=== PATIENT | male | born 1935 | race Caucasian/White ===

== ENCOUNTER 2017-12-27 15:31 | Emergency (ER) | payer MEDICARE, OTHER ==
[2017-12-27 18:03] LABS: BASOPHILS 0.2 % (0-2); EOSINOPHILS 0 % (0-7); HEMATOCRIT 34.5 % (42.0-54.0); HEMOGLOBIN 10.9 g/dL (13.5-17.5); IMMATURE GRANULOCYTES 0.2 % (0-5); LYMPHOCYTES 15.1 % (15-50); MCH 30.1 pg (26.0-34.0); MCHC 31.6 g/dL (31.0-37.0); MCV 95.3 fL (80.0-100.0); MEAN PLATELET VOLUME 9.4 fL (7.4-10.4); MONOCYTES 9.7 % (2-11); NEUTROPHILS 74.8 % (40-80); PLATELET COUNT 222 10x3/uL (130-400); RBC 3.62 10x6/uL (4.20-6.10); RDW 15.8 % (11.5-14.5); WBC 5.2 10x3/uL (4.8-10.8)
[2017-12-27 18:19] LABS: ALBUMIN 2.8 g/dL (3.4-5.0); ANION GAP 12.7 mmol/L (8-16); BILIRUBIN - TOTAL 0.33 mg/dL (0.2-1.3); CARBON DIOXIDE 28.9 mmol/L (21.0-32.0); CREATININE - SERUM 1.4 mg/dL (0.6-1.3); POTASSIUM - SERUM 3.6 mmol/L (3.5-5.1); PROTEIN - SERUM 7.1 g/dL (6.4-8.2)
== END 2017-12-27 19:56 | disposition home or self-care (01) ==
LOC: D.ER 15:31
PROVIDERS: Emergency Medicine
DX: J44.1 Chronic obstructive pulmonary disease with (acute) exacerbation (principal); G91.2 (Idiopathic) normal pressure hydrocephalus; G20 Parkinson's disease; E11.9 Type 2 diabetes mellitus without complications; I50.9 Heart failure, unspecified; Z86.73 Personal history of transient ischemic attack (TIA), and cerebral infarction without residual deficits; J44.9 Chronic obstructive pulmonary disease, unspecified; I10 Essential (primary) hypertension

== ENCOUNTER 2018-04-15 05:50 | Inpatient (IN) | payer MEDICARE, OTHER ==
[2018-04-15] VITALS (10 sets, daily range): BP systolic 130–174; BP diastolic 64–91; BMI 27.9
[~2018-04-15] VITALS: Ht 180.3 cm; Wt 75.4 kg
[2018-04-15] MEDS ORDERED: ASPIRIN81 MG PO (05:56)
[2018-04-15] MEDS ORDERED: ZEBETA5 MG PO (05:56)
[2018-04-15] MEDS ORDERED: CARDIZEM LA240 MG PO (05:57)
[2018-04-15] MEDS ORDERED: LASIX40 MG PO (05:57)
[2018-04-15] MEDS ORDERED: HUMALOG 30100 UNITS/ (05:57)
[2018-04-15] MEDS ORDERED: GLIPIZIDE10 MG PO (05:57)
[2018-04-15] MEDS ORDERED: FERROUS SULFAT325 MG PO (05:57)
[2018-04-15] MEDS ORDERED: ZOCOR20 MG PO (05:58)
[2018-04-15] MEDS ORDERED: JANUVIA100 MG PO (05:58)
[2018-04-15] MEDS ORDERED: KLOR-CON 1010 MEQ PO (05:58)
[2018-04-15] MEDS ORDERED: SPIRIVA18 MCG INH (05:58)
[2018-04-15] MEDS ORDERED: SINEMET CR 50-1 EACH PO (05:59)
[2018-04-15] MEDS ORDERED: CLARITIN 10 MG10 MG PO (05:59)
[2018-04-15] MEDS ORDERED: LEXAPRO10 MG PO (05:59)
[2018-04-15] MEDS ORDERED: MELATONIN 3 MG1 TAB PO (05:59)
[2018-04-15] MEDS ORDERED: TYLENOL W/CODEI1 TAB PO (06:00)
[2018-04-15 07:49] LABS: CREATINE KINASE 59 UL (21-232); TROPONIN-I < 0.017 ng/mL (0.000-0.060)
[2018-04-15 07:56] LABS: BASOPHILS 0.3 % (0-2); EOSINOPHILS 2.8 % (0-7); HEMATOCRIT 39.9 % (42.0-54.0); HEMOGLOBIN 12.9 g/dL (13.5-17.5); IMMATURE GRANULOCYTES 0.3 % (0-5); MCH 30.2 pg (26.0-34.0); MCHC 32.3 g/dL (31.0-37.0); MCV 93.4 fL (80.0-100.0); MEAN PLATELET VOLUME 10.9 fL (7.4-10.4); MONOCYTES 9.3 % (2-11); NEUTROPHILS 70.3 % (40-80); RBC 4.27 10x6/uL (4.20-6.10); RDW 16.2 % (11.5-14.5); WBC 7.8 10x3/uL (4.8-10.8)
[2018-04-15 08:02] LABS: INR 0.99 (0.85-1.17); PROTIME 12.7 SECONDS (11.6-15.0)
[2018-04-15 08:11] LABS: PLATELET COUNT 176 10x3/uL (130-400)
[2018-04-15 09:23] LABS: APPEARANCE CLOUDY (CLEAR); BACTERIA FEW /hpf (NONE SEEN); BILIRUBIN NEGATIVE (NEGATIVE); COLOR YELLOW (YELLOW); EPITHELIAL CELLS RARE /hpf (0-5); GLUCOSE NEGATIVE (NEGATIVE); KETONE NEGATIVE (NEGATIVE); MUCUS <1+ /lpf (NONE SEEN); NITRITE NEGATIVE (NEGATIVE); PROTEIN TRACE mg/dL (NEGATIVE); SPECIFIC GRAVITY 1.005 (1.005-1.020); UROBILINOGEN NORMAL (NORMAL); WHITE CELLS - URINE >50 /hpf (0-5)
[2018-04-15 11:17] LABS: ALBUMIN 3.4 g/dL (3.4-5.0); ANION GAP 13.4 mmol/L (8-16); BILIRUBIN - TOTAL 0.31 mg/dL (0.2-1.3); CALCIUM 9.3 mg/dL (8.5-10.1); CARBON DIOXIDE 28.3 mmol/L (21.0-32.0); CREATININE - SERUM 1.3 mg/dL (0.6-1.3); POTASSIUM - SERUM 3.7 mmol/L (3.5-5.1); PROTEIN - SERUM 7.1 g/dL (6.4-8.2)
[2018-04-16 04:00] VITALS: BP 203/84
[2018-04-16 06:30] LABS: BASOPHILS 0.3 % (0-2); EOSINOPHILS 3.1 % (0-7); HEMATOCRIT 38.2 % (42.0-54.0); HEMOGLOBIN 12.4 g/dL (13.5-17.5); IMMATURE GRANULOCYTES 0.2 % (0-5); MCH 30.4 pg (26.0-34.0); MCHC 32.5 g/dL (31.0-37.0); MCV 93.6 fL (80.0-100.0); MEAN PLATELET VOLUME 10.3 fL (7.4-10.4); NEUTROPHILS 65.4 % (40-80); PLATELET COUNT 166 10x3/uL (130-400); RBC 4.08 10x6/uL (4.20-6.10); RDW 15.9 % (11.5-14.5); WBC 6.1 10x3/uL (4.8-10.8)
[2018-04-16 06:49] LABS: ALBUMIN 3.1 g/dL (3.4-5.0); ANION GAP 11.7 mmol/L (8-16); BILIRUBIN - TOTAL 0.34 mg/dL (0.2-1.3); CALCIUM 8.9 mg/dL (8.5-10.1); CARBON DIOXIDE 28.8 mmol/L (21.0-32.0); CREATININE - SERUM 1.1 mg/dL (0.6-1.3); POTASSIUM - SERUM 3.5 mmol/L (3.5-5.1); PROTEIN - SERUM 6.6 g/dL (6.4-8.2)
[2018-04-16 08:32] VITALS: BP 159/78
[2018-04-16 13:31] VITALS: Ht 180.3 cm; Wt 75.4 kg
[2018-04-16 15:50] VITALS: BP 174/75
[2018-04-16 19:55] VITALS: BP 172/90
[2018-04-16 22:59] VITALS: BP 183/84
[2018-04-17 04:00] VITALS: BP 166/69
[2018-04-17 06:17] LABS: BASOPHILS 0.3 % (0-2); EOSINOPHILS 3.2 % (0-7); HEMATOCRIT 36.6 % (42.0-54.0); HEMOGLOBIN 11.7 g/dL (13.5-17.5); MCV 93.8 fL (80.0-100.0); MONOCYTES 13.2 % (2-11); NEUTROPHILS 59.3 % (40-80); PLATELET COUNT 172 10x3/uL (130-400); WBC 6.3 10x3/uL (4.8-10.8)
[2018-04-17 06:46] LABS: ALBUMIN 3.2 g/dL (3.4-5.0); ALKALINE PHOSPHATASE 102 U/L (46-116); ALT (SGPT) 8 U/L (10-68); BILIRUBIN - TOTAL 0.32 mg/dL (0.2-1.3); CALCIUM 8.8 mg/dL (8.5-10.1); CARBON DIOXIDE 29.3 mmol/L (21.0-32.0); CHLORIDE - SERUM 107 mmol/L (98-107); GLUCOSE 93 mg/dL (74-106); POTASSIUM - SERUM 3.6 mmol/L (3.5-5.1); PROTEIN - SERUM 6.1 g/dL (6.4-8.2); SODIUM 146 mmol/L (136-145); eGFR NON AFRICAN AMERICAN 76 mL/min (90-120)
[2018-04-17 06:47] LABS: CALC OSMOLALITY 292 mosm/kg (275-300); UREA NITROGEN 19 mg/dL (7-18)
[2018-04-17 08:16] VITALS: BP 157/67
[2018-04-17 11:57] VITALS: BP 198/92
[2018-04-17 15:37] VITALS: BP 205/93
[2018-04-17 20:10] VITALS: BP 172/66
[2018-04-18 00:37] VITALS: BP 134/62
[2018-04-18 04:50] VITALS: BP 165/68
[2018-04-18 08:07] VITALS: BP 145/55
[2018-04-18 11:16] LABS: BASOPHILS 0.3 % (0-2); EOSINOPHILS 2.1 % (0-7); HEMATOCRIT 38.4 % (42.0-54.0); HEMOGLOBIN 12.5 g/dL (13.5-17.5); IMMATURE GRANULOCYTES 0.3 % (0-5); LYMPHOCYTES 17.8 % (15-50); MCH 30.3 pg (26.0-34.0); MCHC 32.6 g/dL (31.0-37.0); MCV 93.2 fL (80.0-100.0); MEAN PLATELET VOLUME 10.3 fL (7.4-10.4); NEUTROPHILS 69.5 % (40-80); PLATELET COUNT 186 10x3/uL (130-400); RBC 4.12 10x6/uL (4.20-6.10); RDW 15.7 % (11.5-14.5); WBC 6.7 10x3/uL (4.8-10.8)
[2018-04-18 11:23] VITALS: BP 147/59
[2018-04-18 11:31] LABS: ALBUMIN 3.2 g/dL (3.4-5.0); ANION GAP 14.2 mmol/L (8-16); BILIRUBIN - TOTAL 0.31 mg/dL (0.2-1.3); CALCIUM 9.1 mg/dL (8.5-10.1); CARBON DIOXIDE 28.2 mmol/L (21.0-32.0); CREATININE - SERUM 1.2 mg/dL (0.6-1.3); POTASSIUM - SERUM 3.4 mmol/L (3.5-5.1); PROTEIN - SERUM 6.3 g/dL (6.4-8.2)
[2018-04-18 15:44] VITALS: BP 126/51
[2018-04-18 21:24] VITALS: BP 143/52
[2018-04-19 01:47] VITALS: BP 152/51
[2018-04-19 05:16] LABS: BASOPHILS 0.2 % (0-2); HEMATOCRIT 36.1 % (42.0-54.0); HEMOGLOBIN 11.6 g/dL (13.5-17.5); IMMATURE GRANULOCYTES 0.2 % (0-5); MCH 29.7 pg (26.0-34.0); MCHC 32.1 g/dL (31.0-37.0); MCV 92.6 fL (80.0-100.0); MEAN PLATELET VOLUME 10.2 fL (7.4-10.4); MONOCYTES 13.5 % (2-11); NEUTROPHILS 49.1 % (40-80); PLATELET COUNT 166 10x3/uL (130-400); RDW 15.9 % (11.5-14.5); WBC 5.5 10x3/uL (4.8-10.8)
[2018-04-19 05:22] VITALS: BP 160/60
[2018-04-19 05:42] LABS: ALBUMIN 3.1 g/dL (3.4-5.0); ANION GAP 12.1 mmol/L (8-16); BILIRUBIN - TOTAL 0.34 mg/dL (0.2-1.3); CALCIUM 8.7 mg/dL (8.5-10.1); CARBON DIOXIDE 30.2 mmol/L (21.0-32.0); CREATININE - SERUM 1.2 mg/dL (0.6-1.3); POTASSIUM - SERUM 3.3 mmol/L (3.5-5.1); PROTEIN - SERUM 6.4 g/dL (6.4-8.2)
[2018-04-19 08:25] VITALS: BP 130/63
[2018-04-19 11:02] VITALS: BP 126/73
[2018-04-19 16:13] VITALS: BP 128/73
[2018-04-19 17:18] LABS: ANION GAP 13.6 mmol/L (8-16); CALCIUM 8.8 mg/dL (8.5-10.1); CARBON DIOXIDE 29.4 mmol/L (21.0-32.0); CREATININE - SERUM 1.4 mg/dL (0.6-1.3)
[2018-04-19 20:00] VITALS: BP 157/53
[2018-04-20 04:00] VITALS: BP 173/68
[2018-04-20 07:31] LABS: BASOPHILS 0.2 % (0-2); EOSINOPHILS 4.2 % (0-7); HEMATOCRIT 36.5 % (42.0-54.0); LYMPHOCYTES 30.3 % (15-50); MCH 30.2 pg (26.0-34.0); MCHC 32.9 g/dL (31.0-37.0); MCV 91.7 fL (80.0-100.0); MEAN PLATELET VOLUME 9.9 fL (7.4-10.4); MONOCYTES 10.6 % (2-11); NEUTROPHILS 54.7 % (40-80); PLATELET COUNT 166 10x3/uL (130-400); RBC 3.98 10x6/uL (4.20-6.10); RDW 15.7 % (11.5-14.5); WBC 5.2 10x3/uL (4.8-10.8)
[2018-04-20 07:56] LABS: ALBUMIN 3.2 g/dL (3.4-5.0); ANION GAP 14.4 mmol/L (8-16); BILIRUBIN - TOTAL 0.44 mg/dL (0.2-1.3); CARBON DIOXIDE 26.2 mmol/L (21.0-32.0); CREATININE - SERUM 1.1 mg/dL (0.6-1.3); POTASSIUM - SERUM 3.6 mmol/L (3.5-5.1); PROTEIN - SERUM 6.6 g/dL (6.4-8.2)
[2018-04-20 08:00] VITALS: BP 149/50
[2018-04-20 08:45] VITALS: BP 122/62
[2018-04-20 11:12] VITALS: BP 134/68
[2018-04-21 04:00] VITALS: BP 171/68
[2018-04-21 06:42] LABS: BASOPHILS 0.5 % (0-2); EOSINOPHILS 6.6 % (0-7); HEMATOCRIT 37.4 % (42.0-54.0); HEMOGLOBIN 11.9 g/dL (13.5-17.5); IMMATURE GRANULOCYTES 0.2 % (0-5); LYMPHOCYTES 36.7 % (15-50); MCH 29.2 pg (26.0-34.0); MCHC 31.8 g/dL (31.0-37.0); MCV 91.9 fL (80.0-100.0); MONOCYTES 14.1 % (2-11); NEUTROPHILS 41.9 % (40-80); PLATELET COUNT 177 10x3/uL (130-400); RBC 4.07 10x6/uL (4.20-6.10); RDW 15.6 % (11.5-14.5); WBC 4.4 10x3/uL (4.8-10.8)
[2018-04-21 07:26] LABS: ALBUMIN 3.2 g/dL (3.4-5.0); ANION GAP 12.3 mmol/L (8-16); BILIRUBIN - TOTAL 0.28 mg/dL (0.2-1.3); CALCIUM 9.1 mg/dL (8.5-10.1); CARBON DIOXIDE 29.2 mmol/L (21.0-32.0); CREATININE - SERUM 1.1 mg/dL (0.6-1.3); POTASSIUM - SERUM 3.5 mmol/L (3.5-5.1); PROTEIN - SERUM 6.6 g/dL (6.4-8.2)
[2018-04-21 08:35] VITALS: BP 177/58
[2018-04-21 11:55] VITALS: BP 170/68
== END 2018-04-21 14:14 | DRG 689 ==
LOC: D.ER 05:50 → D.M2 10:36 → D.EDHOLD 10:36 → D.M2 13:46
PROVIDERS: Emergency Medicine; Family Medicine
DX: N39.0 Urinary tract infection, site not specified (principal); G93.41 Metabolic encephalopathy; N17.9 Acute kidney failure, unspecified; B95.2 Enterococcus as the cause of diseases classified elsewhere; Z86.73 Personal history of transient ischemic attack (TIA), and cerebral infarction without residual deficits; E11.9 Type 2 diabetes mellitus without complications; E78.5 Hyperlipidemia, unspecified; I11.0 Hypertensive heart disease with heart failure; I50.9 Heart failure, unspecified; J44.9 Chronic obstructive pulmonary disease, unspecified; I25.10 Atherosclerotic heart disease of native coronary artery without angina pectoris; G20 Parkinson's disease; F02.80 Dementia in other diseases classified elsewhere, unspecified severity, without behavioral disturbance, psychotic disturbance, mood disturbance, and anxiety; Z95.0 Presence of cardiac pacemaker

== ENCOUNTER 2018-04-24 18:53 | Inpatient (IN) | payer MEDICARE, OTHER ==
[~2018-04-24] VITALS: Ht 180.3 cm; Wt 73.4 kg
--- NOTE | ~2018-04-24 | CN ---
PATIENT NAME:JAYLON VICTOR MEDICAL RECORD: [id number] : 31 LOCATION:[place] D.2111 ADMIT DATE: 04/25/18 ACCOUNT: [id number] CONSULTING PHYSICIAN: SONIDO CALLAHAN III, MD REFERRING PHYSICIAN: CATHY BELL MD DATE OF CONSULTATION: 04/28/2018 FINDINGS: An 82-year-old white male who is a resident of a local long term. The patient has a history of multiple comorbidities including Parkinson disease and associated dementia. He also has numerous other medical problems including hypertension, hyperlipidemia, congestive heart failure, COPD, diabetes. The patient was admitted subsequent to a fall at the long term. He did have a right wrist fracture. Subsequent to admission, the patient has shown extreme confusion. He does not recognize family members and has been combative with staff. MENTAL STATUS: On exam, the patient is restless and agitated. He is oriented only to person. Affect is very brittle. Speech is tangential. Content of thought shows nonspecific paranoid ideation. Memory shows global impairment. ASSESSMENT: Parkinson's related dementia with acute exacerbation. RECOMMENDATIONS: The patient is accepted for transfer to [facility] for further medical and psychiatric workup. TRANSINT:[id number] Voice Confirmation ID: [id number] DOCUMENT ID: [id number] SONIDO CALLAHAN III, MD at 0807 CC: [id number] DICTATION DATE: 04/28/18 1239 SYNCHRONIZER: 04/28/18 1316 DIS IN 04/28/18 [facility] [address] [id number]
[~2018-04-24 18:53] MED LIST: ASPIRIN81 MG PO; CARDIZEM LA240 MG PO; CLARITIN 10 MG10 MG PO; FERROUS SULFAT325 MG PO; GLIPIZIDE10 MG PO; HUMALOG 30100 UNITS/; JANUVIA100 MG PO; KLOR-CON 1010 MEQ PO; LASIX40 MG PO; LEXAPRO10 MG PO; MELATONIN 3 MG1 TAB PO; SINEMET CR 50-1 EACH PO; SPIRIVA18 MCG INH; TYLENOL W/CODEI1 TAB PO; ZEBETA5 MG PO; ZOCOR20 MG PO
[2018-04-24] MEDS ORDERED: ATIVAN0.5 MG PO (19:25)
[2018-04-24] MEDS ORDERED: ATIVAN2 MG/ML IV (19:25)
[2018-04-24 20:00] VITALS: BP 165/80
[2018-04-24 22:00] VITALS: BP 170/80
[2018-04-25] VITALS (15 sets, daily range): BP systolic 128–218; BP diastolic 49–106
[2018-04-25 00:38] LABS: BASOPHILS 0.1 % (0-2); EOSINOPHILS 0.9 % (0-7); HEMATOCRIT 35.4 % (42.0-54.0); HEMOGLOBIN 11.4 g/dL (13.5-17.5); IMMATURE GRANULOCYTES 0.2 % (0-5); LYMPHOCYTES 11.8 % (15-50); MCH 30.2 pg (26.0-34.0); MCHC 32.2 g/dL (31.0-37.0); MCV 93.7 fL (80.0-100.0); MONOCYTES 9.4 % (2-11); NEUTROPHILS 77.6 % (40-80); PLATELET COUNT 200 10x3/uL (130-400); RBC 3.78 10x6/uL (4.20-6.10); RDW 15.9 % (11.5-14.5); WBC 10.5 10x3/uL (4.8-10.8)
[2018-04-25 00:43] LABS: APTT 22.8 SECONDS (22.8-39.4); INR 1.02 (0.85-1.17)
[2018-04-25 00:46] LABS: ALBUMIN 3.2 g/dL (3.4-5.0); ALKALINE PHOSPHATASE 91 U/L (46-116); ALT (SGPT) 7 U/L (10-68); BILIRUBIN - TOTAL 0.26 mg/dL (0.2-1.3); CALC OSMOLALITY 286 mosm/kg (275-300); CALCIUM 8.6 mg/dL (8.5-10.1); CARBON DIOXIDE 29.3 mmol/L (21.0-32.0); CHLORIDE - SERUM 106 mmol/L (98-107); CREATININE - SERUM 1.1 mg/dL (0.6-1.3); GLUCOSE 100 mg/dL (74-106); POTASSIUM - SERUM 3.9 mmol/L (3.5-5.1); PROTEIN - SERUM 6.5 g/dL (6.4-8.2); SODIUM 143 mmol/L (136-145); UREA NITROGEN 17 mg/dL (7-18); eGFR NON AFRICAN AMERICAN 68 mL/min (90-120)
[2018-04-25 00:58] LABS: D-DIMER-QUANTITATIVE 4.01 ug/mLFEU (0.20-0.54)
[2018-04-25 00:59] LABS: CKMB 1.4 U/L (0.0-3.6); CREATINE KINASE 92 UL (21-232); TROPONIN-I < 0.017 ng/mL (0.000-0.060)
[2018-04-25 02:57] LABS: APPEARANCE CLEAR (CLEAR); COLOR YELLOW (YELLOW); GLUCOSE NEGATIVE (NEGATIVE); KETONE NEGATIVE (NEGATIVE); NITRITE NEGATIVE (NEGATIVE); PROTEIN NEGATIVE (NEGATIVE); SPECIFIC GRAVITY 1.015 (1.005-1.020)
[2018-04-25 02:58] LABS: BILIRUBIN NEGATIVE (NEGATIVE); UROBILINOGEN NORMAL (NORMAL)
[2018-04-25 06:28] LABS: BASOPHILS 0.1 % (0-2); EOSINOPHILS 0.2 % (0-7); HEMATOCRIT 37.1 % (42.0-54.0); HEMOGLOBIN 12.2 g/dL (13.5-17.5); IMMATURE GRANULOCYTES 0.2 % (0-5); LYMPHOCYTES 17.6 % (15-50); MCH 30.4 pg (26.0-34.0); MCHC 32.9 g/dL (31.0-37.0); MCV 92.5 fL (80.0-100.0); MEAN PLATELET VOLUME 9.5 fL (7.4-10.4); NEUTROPHILS 71.9 % (40-80); PLATELET COUNT 205 10x3/uL (130-400); RBC 4.01 10x6/uL (4.20-6.10); RDW 15.6 % (11.5-14.5)
[2018-04-25 06:57] LABS: ALBUMIN 3.5 g/dL (3.4-5.0); ANION GAP 12.2 mmol/L (8-16); BILIRUBIN - TOTAL 0.42 mg/dL (0.2-1.3); CARBON DIOXIDE 29.6 mmol/L (21.0-32.0); CREATININE - SERUM 1.2 mg/dL (0.6-1.3); POTASSIUM - SERUM 3.8 mmol/L (3.5-5.1); PROTEIN - SERUM 7.1 g/dL (6.4-8.2)
[2018-04-26] VITALS: BP 126/69
[2018-04-26 03:22] VITALS: BP 126/69; BMI 22.5
[2018-04-26 04:00] VITALS: BP 173/74
[2018-04-26 08:52] VITALS: BP 150/66
[2018-04-26 13:55] VITALS: Ht 180.3 cm; Wt 73.4 kg
[2018-04-26 16:33] VITALS: BP 155/50
[2018-04-26 21:40] VITALS: BP 171/93
[2018-04-27 06:14] VITALS: BP 125/66
[2018-04-27 06:33] VITALS: BP 161/56
[2018-04-27 08:21] VITALS: BP 174/71
[2018-04-27 11:36] VITALS: BP 146/62
[2018-04-27 16:14] VITALS: BP 174/69
[2018-04-27 20:00] VITALS: BP 150/70
[2018-04-28] VITALS: BP 178/65
[2018-04-28 04:00] VITALS: BP 160/60
[2018-04-28 08:44] VITALS: BP 145/63
[2018-04-28 12:36] VITALS: BP 121/82
== END 2018-04-28 16:32 | disposition short-term general hospital (02) | DRG 562 ==
LOC: D.ER 18:53 → D.M2 04-25 02:47 → D.EDHOLD 04-25 02:47 → D.M2 04-25 18:25
PROVIDERS: Family Medicine
PROC: 2W3CX1Z Immobilization of Right Lower Arm using Splint (ICD-10-PCS; principal; 2018-04-25)
DX: S52.511A Displaced fracture of right radial styloid process, initial encounter for closed fracture (principal); R53.2 Functional quadriplegia; W01.0XXA Fall on same level from slipping, tripping and stumbling without subsequent striking against object, initial encounter; Y92.129 Unspecified place in nursing home as the place of occurrence of the external cause; G20 Parkinson's disease; F02.80 Dementia in other diseases classified elsewhere, unspecified severity, without behavioral disturbance, psychotic disturbance, mood disturbance, and anxiety; E78.5 Hyperlipidemia, unspecified; I11.0 Hypertensive heart disease with heart failure; I50.9 Heart failure, unspecified; J44.9 Chronic obstructive pulmonary disease, unspecified; E11.9 Type 2 diabetes mellitus without complications; Z95.0 Presence of cardiac pacemaker; D64.9 Anemia, unspecified; S00.03XA Contusion of scalp, initial encounter; J34.1 Cyst and mucocele of nose and nasal sinus; R41.0 Disorientation, unspecified; Z86.73 Personal history of transient ischemic attack (TIA), and cerebral infarction without residual deficits

== ENCOUNTER 2018-04-28 16:37 | Inpatient (IN) | payer MEDICARE, OTHER ==
[~2018-04-28] VITALS: Ht 180.3 cm; Wt 72.7 kg
--- NOTE | ~2018-04-28 | PN ---
PATIENT:JAYLON VICTOR MEDICAL RECORD: [id number] LOCATION:[place] ADMISSION DATE: 04/28/18 PROGRESS NOTE DATE OF SERVICE: 05/05/2018 SUBJECTIVE: No new complaint is noted. OBJECTIVE: The patient is much less agitated. However, he is exhibiting elevated blood pressure and fluctuating blood sugar. This will be addressed medically by Dr. Toro. On exam, mood is euthymic. Affect is very constricted. Speech is terse. Content of thought focuses only on somatic concerns. Sensorium unchanged. ASSESSMENT: No change in diagnosis. PLAN: 1. Continue current medication. 2. Continue supportive therapy. TRANSINT:[id number] Voice Confirmation ID: [id number] DOCUMENT ID: [id number] SONIDO CALLAHAN III, MD at 1021 CC: [id number] DICTATION DATE: 05/05/18 1025 KETTLE CLEANER: 05/05/18 1114 ADM IN [place] [place] [address]
--- NOTE | ~2018-04-28 | PN ---
PATIENT:JAYLON VICTOR MEDICAL RECORD: [id number] LOCATION:[place] ADMISSION DATE: 04/28/18 PROGRESS NOTE DATE OF SERVICE: 05/07/2018 SUBJECTIVE: No new complaint. OBJECTIVE: The patient is pleasant on approach today. He has been sleeping well and eating well. He overall is more coherent. On exam, mood is pleasant and euthymic. Affect is bland. Speech is rambling and tangential and poorly connected. Thought content focuses primarily on somatic concerns. Sensorium shows no change. ASSESSMENT: No change in diagnosis. PLAN: 1. Continue current medication. 2. Continue supportive therapy. TRANSINT:[id number] Voice Confirmation ID: [id number] DOCUMENT ID: [id number] SONIDO CALLAHAN III, MD at 0748 CC: [id number] DICTATION DATE: 05/07/18 1144 ENGINEERING SUPPLIES SALES: 05/07/18 1313 ADM IN [facility] [address] [id number]
--- NOTE | ~2018-04-28 | PN ---
PATIENT:JAYLON ORTEGA MEDICAL RECORD: [id number] LOCATION:[place] ADMISSION DATE: 04/28/18 PROGRESS NOTE DATE OF SERVICE: 05/06/2018 SUBJECTIVE: No new complaint is offered. OBJECTIVE: Phone contact was made with the patient's daughter, Carolynn Ricks. Explanation was given regarding the team's recommendations on discharge. It was explained to Ms. Ricks that at this point in time Mr Ortega most likely could not participate in any kind of formal rehabilitation program and that long term placement in view of his compromised mental status is preferable. The daughter expressed understanding at this explanation. The patient himself is pleasant. Mood is euthymic. Affect is bland. Speech is terse. Content of thought focuses only on somatic concerns. Sensorium is unchanged. ASSESSMENT: No change in diagnosis. PLAN: 1. Continue current medication. 2. Continue supportive therapy. TRANSINT:[id number] Voice Confirmation ID: [id number] DOCUMENT ID: [id number] SONIDO CALLAHAN III, MD at 0934 CC: [id number] DICTATION DATE: 05/06/18 1135 CANVAS WORKER: 05/06/18 1152 ADM IN [facility] [address] [id number]
--- NOTE | ~2018-04-28 | PN ---
PATIENT:JAYLON VICTOR MEDICAL RECORD: [id number] LOCATION:[place] ADMISSION DATE: 04/28/18 PROGRESS NOTE DATE OF SERVICE: 05/02/2018 SUBJECTIVE: No new complaint offered. OBJECTIVE: Staff reports the patient has been less responsive and exhibits poor appetite. There has been no aggression at all. On exam, mood is euthymic. Affect is constricted. Speech is very terse. Content of thought is negative for overt psychosis. Sensorium unchanged. ASSESSMENT: No change in diagnosis. PLAN: 1. We will discontinue h.s. trazodone. 2. Reduce lorazepam to 0.25 mg h.s. only. 3. Add Megace suspension 400 mg b.i.d. 4. Continue other medications and supportive therapy. TRANSINT:[id number] Voice Confirmation ID: [id number] DOCUMENT ID: [id number] SONIDO CALLAHAN III, MD at 1959 CC: [id number] DICTATION DATE: 05/02/18 111 FRAME TRIMMER: 05/02/18 1116 ADM IN [place] [id number] [place] [id number]
--- NOTE | ~2018-04-28 | PSY ---
PATIENT NAME:JAYLON VICTOR MEDICAL RECORD: [id number] : 31 LOCATION:[place]3 ADMISSION DATE: 04/28/18 ACCOUNT: [id number] PSYCHIATRIC EVALUATION DATE OF EVALUATION: 04/29/18 HISTORY OF PRESENT ILLNESS: This is the first [facility] admission for this 82-year-old white male. The patient was initially admitted to [facility] on 04/25/2018. At that time, he had suffered a fracture of the right arm. The patient has a history of Parkinson disease and associated dementia. Following admission from the retirement, the patient was extremely confused. He had also suffered a facial injury with severe contusion over the right eyebrow. Imaging studies were negative for acute intracranial event. The patient during the hospitalization became quite confused and agitated. He at one point failed to recognize family members and was aggressive and belligerent towards staff. Because of the sudden change in mental status, transfer to [facility] was requested. PAST MEDICAL HISTORY: Significant for Parkinson disease, dementia, hypertension, coronary artery disease, COPD, and past cerebrovascular accident. FAMILY HISTORY: Noncontributory. SOCIAL HISTORY: The patient does have family involved in his care. There is no history of associated substance abuse. ALLERGIES: Listed only as MORPHINE. MENTAL STATUS: On interview, the patient is seated in the day room. He is pleasant, but appears quite confused. He wears a splint on his right arm. Mood is somewhat perplexed and anxious. Affect is overall constricted. Speech is tangential. Content of thought is negative for overt psychosis. On sensorium testing, the patient is oriented to person. He is unsure as to his location. He is not oriented as to time. He shows impairment in all phases of memory. DIAGNOSTIC IMPRESSION: AXIS I: Vascular dementia. AXIS II: No diagnosis. AXIS III: Parkinson disease, status post fracture of right arm, hypertension, coronary artery disease, past history of cerebrovascular accident, COPD. AXIS IV: Moderate. AXIS V: 36. PLAN: 1. The patient is admitted for further medical and psychiatric workup. 2. Diet and activities as tolerated. 3. Daily supportive therapy. TRANSINT:[id number] Voice Confirmation ID: [id number] DOCUMENT ID: [id number] SONIDO CALLAHAN III, MD at 1058 CC: [id number] DICTATION DATE: 04/29/18 1152 PHONE BANKER: 04/29/18 1213 ADM IN [facility] [address] [id number]
--- NOTE | ~2018-04-28 | PN ---
PATIENT:JAYLON VICTOR MEDICAL RECORD: [id number] LOCATION:[place] ADMISSION DATE: 04/28/18 PROGRESS NOTE DATE OF SERVICE: 05/01/2018 SUBJECTIVE: No new complaint. OBJECTIVE: The patient is continuing to show gradual improvement. He is tolerating medications well. No further combativeness or agitation noted. On exam, mood is euthymic. Affect is quite constricted. Speech is low in volume and rather terse. Content of thought is negative for overt psychosis. Sensorium unchanged. ASSESSMENT: No change in diagnosis. PLAN: 1. Continue current medication. 2. Continue supportive therapy. TRANSINT:[id number] Voice Confirmation ID: [id number] DOCUMENT ID: [id number] SONIDO CALLAHAN III, MD at 0959 CC: [id number] DICTATION DATE: 05/01/18 1006 GLOVE OPERATOR: 05/01/18 1206 ADM IN [address] [address] [place] [id number]
--- NOTE | ~2018-04-28 | DS ---
PATIENT:JAYLON VICTOR :31 MEDICAL RECORD: [id number] DISCHARGE SUMMARY ADMISSION DATE: 04/28/18 DISCHARGE DATE: 05/09/18 DATE OF ADMISSION: 04/28/2018 DATE OF DISCHARGE: 05/09/2018 HISTORY OF PRESENT ILLNESS: First [facility] admission for this 82-year-old white male. He had been originally admitted to [facility] on 04/25/18. At that time, he had suffered a fracture of his right arm. He had a previous history of Parkinson disease and associated dementia. Subsequent to admission, the patient did show worsening confusion and agitation and for this reason was transferred. For further details, please see previously dictated history. COURSE IN THE HOSPITAL: The patient was seen in consultation by Dr. Toro. Dr. Toro noted the presence of Parkinson disease as well as type 2 diabetes, a displaced fracture of the right styloid process, hypertension, coronary artery disease, iron deficiency anemia and COPD. The patient also had undergone pacemaker implantation. The patient was treated very conservatively from a psychiatric standpoint. He was given lorazepam 0.25 mg at bedtime to assist with sleep. Also, given Namenda 2.5 mg b.i.d. as well as trazodone 50 mg h.s. Presumptive diagnosis was vascular dementia complicated by a preexisting Parkinson disease. The patient had previously been treated with Lexapro 10 mg daily and this was also continued. The patient showed a slow improvement in his agitation. He was maintained on his routine Parkinson's and diabetes medications as well. Initially, the patient could not follow a meaningful conversation, but became slightly more coherent as time went by. Nonetheless, decision was made to proceed with longterm placement as the patient does have clearly advanced dementia. FINAL DIAGNOSES: AXIS I: Vascular dementia with behavioral disturbance -- improving. AXIS II: No diagnosis. AXIS III: Parkinson disease, type 2 diabetes, status post fracture of right arm, hypertension, coronary artery disease, chronic obstructive pulmonary disease. AXIS IV: Moderate. AXIS V: 38. PLAN: 1. The patient is discharged on current medication. 2. Diet and activities as tolerated. 3. Follow up through primary care physician. TRANSINT:[id number] Voice Confirmation ID: [id number] DOCUMENT ID: [id number] DISCHARGE SUMMARY REPORT [id number] JAYLON VICTOR III, SONIDO Harman MD at 1026 CC: [id number] DICTATION DATE: 05/12/18 0848 SUPERVISOR FARM EQUIPMENT MAINTENANCE: 05/12/18 1230 DIS IN 05/09/18 [id number] [facility] [place] [address]
--- NOTE | ~2018-04-28 | PN ---
PATIENT:JAYLON VICTOR MEDICAL RECORD: [id number] LOCATION:[place] ADMISSION DATE: 04/28/18 PROGRESS NOTE DATE OF SERVICE: 05/08/2018 SUBJECTIVE: No new complaint is noted. OBJECTIVE: The patient has been cooperative and pleasant. He is eating better. Plans are for discharge in the morning. On exam, mood is euthymic. Affect is very pleasant and bland. Speech is tangential. Content of thought focuses only on somatic concerns. Sensorium shows no change. ASSESSMENT: No change in diagnosis. PLAN: 1. Maintain all current medication and treatment plan. 2. Anticipate discharge tomorrow. TRANSINT:[id number] Voice Confirmation ID: [id number] DOCUMENT ID: [id number] SONIDO CALLAHAN III, MD at 0837 CC: [id number] DICTATION DATE: 05/08/18 1024 SENIOR SUPPLY CHAIN ANALYST: 05/08/18 1202 DIS IN 05/09/18 [address] [place] [address]
--- NOTE | ~2018-04-28 | PN ---
PATIENT:JAYLON VICTOR MEDICAL RECORD: [id number] LOCATION:[place] ADMISSION DATE: 04/28/18 PROGRESS NOTE DATE OF SERVICE: 04/30/2018 SUBJECTIVE: No new complaint. OBJECTIVE: The patient has been fairly cooperative. His appetite is improving. He remains profoundly confused. On exam, mood is fairly pleasant. Affect is shallow. Speech is tangential and nonfocused. Content of thought is negative for overt psychosis. Sensorium unchanged. ASSESSMENT: No change in diagnosis. PLAN: 1. Continue current medication. 2. Continue supportive therapy. TRANSINT:[id number] Voice Confirmation ID: [id number] DOCUMENT ID: [id number] SONIDO CALLAHAN III, MD at 0841 CC: [id number] DICTATION DATE: 04/30/18 1147 INSURANCE ACTUARY: 04/30/18 1156 ADM IN [place] [address] [place] [id number]
[~2018-04-28 16:37] MED LIST changes: +ATIVAN0.5 MG PO; +ATIVAN2 MG/ML IV
[2018-04-29 10:03] VITALS: BP 203/83
[2018-04-29 14:59] VITALS: BMI 22.4
[2018-04-30 00:11] VITALS: BP 175/66
[2018-04-30 08:00] VITALS: BP 193/79
[2018-04-30 20:00] VITALS: BP 169/62
[2018-05-01 09:39] VITALS: BP 176/75
[2018-05-01 22:05] VITALS: BP 140/66
[2018-05-01 22:21] VITALS: BP 154/60
[2018-05-02 10:47] VITALS: BP 195/72
[2018-05-02 21:09] VITALS: BP 158/59
[2018-05-03 11:14] VITALS: BP 219/92
[2018-05-03 19:32] VITALS: BP 151/77
[2018-05-04 07:00] VITALS: BP 213/97
[2018-05-04 19:20] VITALS: BP 156/69
[2018-05-05 07:00] VITALS: BP 169/72
[2018-05-05 20:58] VITALS: BP 174/74
[2018-05-06 10:25] VITALS: BP 157/70
[2018-05-06 19:36] VITALS: BP 156/64
[2018-05-07 10:56] VITALS: BP 154/59
[2018-05-07 20:25] VITALS: BP 162/72
[2018-05-08 09:45] VITALS: BP 180/65
[2018-05-08] MEDS ORDERED: NAMENDA5 MG PO (10:29)
[2018-05-08] MEDS ORDERED: ATIVAN0.5 MG PO (10:29)
[2018-05-08] MEDS ORDERED: IBUPROFEN400 MG PO (10:29)
[2018-05-08] MEDS ORDERED: MEGACE400 MG/10 PO (10:30)
[2018-05-08] MEDS ORDERED: FLORAJEN3 CAPS460 MG PO (10:30)
[2018-05-08] MEDS ORDERED: CALMOSEPTINE OI71 GM TOPICAL (10:31)
[2018-05-08 19:56] VITALS: BP 188/73
[2018-05-09 09:42] VITALS: BP 142/93
[2018-05-09 10:50] VITALS: Ht 180.3 cm; Wt 72.7 kg
== END 2018-05-09 12:16 | DRG 57 ==
LOC: D.PSYCH 16:37
PROVIDERS: Family Medicine
DX: I69.818 Other symptoms and signs involving cognitive functions following other cerebrovascular disease (principal); F01.51 Vascular dementia, unspecified severity, with behavioral disturbance; F02.81 Dementia in other diseases classified elsewhere, unspecified severity, with behavioral disturbance; G20 Parkinson's disease; I11.0 Hypertensive heart disease with heart failure; I50.9 Heart failure, unspecified; E11.9 Type 2 diabetes mellitus without complications; F41.9 Anxiety disorder, unspecified; I25.10 Atherosclerotic heart disease of native coronary artery without angina pectoris; J44.9 Chronic obstructive pulmonary disease, unspecified; S52.511D Displaced fracture of right radial styloid process, subsequent encounter for closed fracture with routine healing; W19.XXXD Unspecified fall, subsequent encounter; D50.9 Iron deficiency anemia, unspecified; Z95.0 Presence of cardiac pacemaker

== ENCOUNTER 2018-05-10 15:20 | Emergency (ER) | payer MEDICARE, OTHER ==
[~2018-05-10] VITALS: Ht 180.3 cm; Wt 83.9 kg
[~2018-05-10 15:20] MED LIST changes: +CALMOSEPTINE OI71 GM TOPICAL; +FLORAJEN3 CAPS460 MG PO; +IBUPROFEN400 MG PO; +MEGACE400 MG/10 PO; +NAMENDA5 MG PO
[2018-05-10 15:38] VITALS: Ht 180.3 cm; Wt 83.9 kg
[2018-05-10 23:21] VITALS: BP 160/98
== END 2018-05-10 23:22 | disposition home or self-care (01) ==
LOC: D.ER 15:20
DX: S80.01XA Contusion of right knee, initial encounter (principal); W19.XXXA Unspecified fall, initial encounter; Y93.89 Activity, other specified; Y92.129 Unspecified place in nursing home as the place of occurrence of the external cause; F03.90 Unspecified dementia, unspecified severity, without behavioral disturbance, psychotic disturbance, mood disturbance, and anxiety; G20 Parkinson's disease; E11.9 Type 2 diabetes mellitus without complications; I10 Essential (primary) hypertension; I50.9 Heart failure, unspecified; I25.10 Atherosclerotic heart disease of native coronary artery without angina pectoris; Z95.0 Presence of cardiac pacemaker; J44.9 Chronic obstructive pulmonary disease, unspecified

== ENCOUNTER 2018-05-17 22:32 | Inpatient (IN) | payer MEDICARE, OTHER ==
[~2018-05-17] VITALS: Ht 180.3 cm; Wt 75.3 kg
--- NOTE | ~2018-05-17 | MORECARE ---
CASE MANAGEMENT DISCHARGE SUMMARY PATIENT: JAYLON VICTOR UNIT: [id number] ADM DATE: 05/18/18 AGE: 82 : 33 SEX: M ROOM/BED: D.2105 AUTHOR: CARINE, STEWARD/STEWARDESS TOURIST CLASS PHYSICIAN: REFERRING PHYSICIAN: KINJAL BRODERICK MD DATE OF SERVICE: 05/18/18 Discharge Plan Patient Name: JAYLON VICTOR Facility: [facility]:[place] : 1935 Planned Disposition: [facility] Facility Anticipated Discharge Date: 05/21/18 Discharge Date: Expected LOS: 3 Initial Reviewer: [email or web address] Initial Review Date: 05/21/2018 Generated: 05/21/18 12:58 pm DCPIA - Discharge Planning Initial Assessment Updated by [email or web address]: Keven Daly on 05/21/18 11:55 am * Is the patient Alert and Oriented? No * How many steps to enterexit or inside your home? NONE * PCP DR. GONG * [facility] * Preadmission Environment [facility] Facility * Facility Name [facility] * ADLs Partial Dependent * Partial ADLs (Assistance needed) Bathing Dressing Medication Management Toileting Transfers * Equipment Other * Other Equipment ALL MEDICAL EQUIPMENT PROVIDED BY FACILITY * List name and contact numbers for known caregivers / representatives who currently or will assist patient after discharge: [facility], * Verbal permission to speak to the caregivers and representatives has been obtained from the patient. N/A * Community resources currently utilized None * Please name any agencies selected above. NONE * Additional services required to return to the preadmission environment? No * Can the patient safely return to the preadmission environment? Yes * Has this patient been hospitalized within the prior 30 days at any hospital? No External Providers External Provider: [facility] Next Contact Date: 05/21/2018 Service Request Date: Service Type: Resolution: Reviewer: Comments: Coverage Notice Reviewer: [email or web address] - Keven Daly Notice Issued Date-Time: 05/21/2018 10:50 Notice Type: IM Discharge Notice Notice Delivered To: Patient Relationship to Patient: Buffing Line Set Up Worker Name: Delivery Method: HAND - Hand Delivered Charisma Days: Prior Verbal Notification: Recipient Understood Notice: Recipient Signature: Med Rec Note Co-signed by Attending: Coverage Notice Comment: Patient Name: JAYLON VICTOR Page [phone] All edits/amendments must be made on the electronic document DICTATION DATE: 05/21/181157 MEDICAL STAFF ASSISTANT: 05/21/181157 RPT#: [id number] DC DATE: STATUS: ADM IN [facility] [address] [place] [address] END OF REPORT
[2018-05-17] MEDS ORDERED: CALCIUM 600 +1 EAC3 PO (23:38)
[2018-05-17] MEDS ORDERED: AUGMENTIN 875-11 TAB PO (23:39)
[2018-05-17 23:49] LABS: APPEARANCE TURBID (CLEAR); BACTERIA MANY /hpf (NONE SEEN); BILIRUBIN NEGATIVE (NEGATIVE); COLOR YELLOW (YELLOW); EPITHELIAL CELLS NSEEN /hpf (0-5); GLUCOSE NEGATIVE (NEGATIVE); KETONE SMALL mg/dL (NEGATIVE); MUCUS >1+ /lpf (NONE SEEN); NITRITE POSITIVE (NEGATIVE); PROTEIN 2+ mg/dL (NEGATIVE); SPECIFIC GRAVITY 1.015 (1.005-1.020); UROBILINOGEN NORMAL (NORMAL); WHITE CELLS - URINE >50 /hpf (0-5)
[2018-05-17 23:51] LABS: BASOPHILS 0 % (0-2); EOSINOPHILS 0 % (0-7); HEMATOCRIT 36.1 % (42.0-54.0); HEMOGLOBIN 11.4 g/dL (13.5-17.5); IMMATURE GRANULOCYTES 0.2 % (0-5); MCH 29.7 pg (26.0-34.0); MCHC 31.6 g/dL (31.0-37.0); MEAN PLATELET VOLUME 9.8 fL (7.4-10.4); NEUTROPHILS 85.8 % (40-80); RBC 3.84 10x6/uL (4.20-6.10); RDW 16.1 % (11.5-14.5); WBC 16.8 10x3/uL (4.8-10.8)
[2018-05-17 23:54] LABS: PLATELET COUNT 313 10x3/uL (130-400)
[2018-05-17 23:59] VITALS: BP 172/97
[2018-05-18] VITALS (8 sets, daily range): BP systolic 172–207; BP diastolic 69–128; BMI 25.1
[2018-05-18 00:01] LABS: ALBUMIN 2.3 g/dL (3.4-5.0); ALKALINE PHOSPHATASE 76 U/L (46-116); ALT (SGPT) 5 U/L (10-68); BILIRUBIN - TOTAL 0.45 mg/dL (0.2-1.3); CALC OSMOLALITY 308 mosm/kg (275-300); CALCIUM 8.6 mg/dL (8.5-10.1); CARBON DIOXIDE 30.1 mmol/L (21.0-32.0); CHLORIDE - SERUM 113 mmol/L (98-107); CREATININE - SERUM 1.2 mg/dL (0.6-1.3); GLUCOSE 149 mg/dL (74-106); POTASSIUM - SERUM 3.7 mmol/L (3.5-5.1); PROTEIN - SERUM 6.6 g/dL (6.4-8.2); SODIUM 151 mmol/L (136-145); UREA NITROGEN 28 mg/dL (7-18); eGFR NON AFRICAN AMERICAN 61 mL/min (90-120)
[2018-05-18 00:08] LABS: CKMB 2.6 U/L (0.0-3.6); CREATINE KINASE 81 UL (21-232); PRO BNP 2924 pg/mL (0-450); TROPONIN-I 0.018 ng/mL (0.000-0.060)
[2018-05-19 00:05] VITALS: BP 214/96
[2018-05-19 04:42] LABS: BASOPHILS 0.1 % (0-2); EOSINOPHILS 0.7 % (0-7); HEMATOCRIT 35.3 % (42.0-54.0); IMMATURE GRANULOCYTES 0.3 % (0-5); LYMPHOCYTES 8.4 % (15-50); MCH 29.3 pg (26.0-34.0); MCHC 31.2 g/dL (31.0-37.0); MCV 93.9 fL (80.0-100.0); MONOCYTES 6.5 % (2-11); PLATELET COUNT 299 10x3/uL (130-400); RBC 3.76 10x6/uL (4.20-6.10); RDW 16.2 % (11.5-14.5); WBC 10.3 10x3/uL (4.8-10.8)
[2018-05-19 04:58] LABS: ALBUMIN 2.1 g/dL (3.4-5.0); BILIRUBIN - TOTAL 0.41 mg/dL (0.2-1.3); CALCIUM 8.9 mg/dL (8.5-10.1); CARBON DIOXIDE 30.2 mmol/L (21.0-32.0); CREATININE - SERUM 1.1 mg/dL (0.6-1.3); PROTEIN - SERUM 6.5 g/dL (6.4-8.2)
[2018-05-19 05:12] LABS: ANION GAP 10.9 mmol/L (8-16); POTASSIUM - SERUM 3.1 mmol/L (3.5-5.1)
[2018-05-19 05:25] VITALS: BP 191/102
[2018-05-19 12:06] VITALS: BP 188/97
[2018-05-19 12:27] VITALS: Ht 180.3 cm; Wt 75.3 kg
[2018-05-19 20:05] VITALS: BP 184/102
[2018-05-20] VITALS (7 sets, daily range): BP systolic 101–194; BP diastolic 59–153
[2018-05-20 05:52] LABS: BASOPHILS 0 % (0-2); EOSINOPHILS 1.1 % (0-7); HEMATOCRIT 31.4 % (42.0-54.0); IMMATURE GRANULOCYTES 0.4 % (0-5); LYMPHOCYTES 9.1 % (15-50); MCH 29.5 pg (26.0-34.0); MCHC 31.8 g/dL (31.0-37.0); MCV 92.6 fL (80.0-100.0); MEAN PLATELET VOLUME 9.9 fL (7.4-10.4); MONOCYTES 8.5 % (2-11); NEUTROPHILS 80.9 % (40-80); PLATELET COUNT 275 10x3/uL (130-400); RBC 3.39 10x6/uL (4.20-6.10); WBC 8.3 10x3/uL (4.8-10.8)
[2018-05-20 06:23] LABS: ALKALINE PHOSPHATASE 66 U/L (46-116); ALT (SGPT) 20 U/L (10-68); BILIRUBIN - TOTAL 0.44 mg/dL (0.2-1.3); CALC OSMOLALITY 292 mosm/kg (275-300); CALCIUM 8.2 mg/dL (8.5-10.1); CARBON DIOXIDE 29.1 mmol/L (21.0-32.0); CHLORIDE - SERUM 110 mmol/L (98-107); GLUCOSE 104 mg/dL (74-106); POTASSIUM - SERUM 3.8 mmol/L (3.5-5.1); PROTEIN - SERUM 6.2 g/dL (6.4-8.2); SODIUM 146 mmol/L (136-145); UREA NITROGEN 19 mg/dL (7-18); eGFR NON AFRICAN AMERICAN 76 mL/min (90-120)
[2018-05-21 01:26] VITALS: BP 120/83
[2018-05-21 05:39] VITALS: BP 157/90
[2018-05-21 05:59] LABS: BASOPHILS 0 % (0-2); EOSINOPHILS 1.6 % (0-7); HEMATOCRIT 31.1 % (42.0-54.0); HEMOGLOBIN 10.3 g/dL (13.5-17.5); IMMATURE GRANULOCYTES 0.7 % (0-5); LYMPHOCYTES 11.9 % (15-50); MCH 30.2 pg (26.0-34.0); MCHC 33.1 g/dL (31.0-37.0); MCV 91.2 fL (80.0-100.0); MEAN PLATELET VOLUME 9.9 fL (7.4-10.4); MONOCYTES 9.4 % (2-11); NEUTROPHILS 76.4 % (40-80); PLATELET COUNT 255 10x3/uL (130-400); RBC 3.41 10x6/uL (4.20-6.10); RDW 15.8 % (11.5-14.5); WBC 7.5 10x3/uL (4.8-10.8)
[2018-05-21 06:25] LABS: ALKALINE PHOSPHATASE 64 U/L (46-116); ALT (SGPT) 22 U/L (10-68); BILIRUBIN - TOTAL 0.47 mg/dL (0.2-1.3); CALC OSMOLALITY 283 mosm/kg (275-300); CALCIUM 8.4 mg/dL (8.5-10.1); CHLORIDE - SERUM 107 mmol/L (98-107); GLUCOSE 88 mg/dL (74-106); POTASSIUM - SERUM 3.6 mmol/L (3.5-5.1); PROTEIN - SERUM 6.1 g/dL (6.4-8.2); SODIUM 142 mmol/L (136-145); UREA NITROGEN 18 mg/dL (7-18); eGFR NON AFRICAN AMERICAN 76 mL/min (90-120)
[2018-05-21 07:45] VITALS: BP 169/74
[2018-05-21] MEDS ORDERED: PROTONIX40 MG PO (10:41)
[2018-05-21] MEDS ORDERED: BACTRIM DS TABL1 TAB PO (10:42)
[2018-05-21 11:22] VITALS: BP 180/88
[2018-05-21 20:17] VITALS: BP 182/112
[2018-05-22 00:58] VITALS: BP 210/116
[2018-05-22 05:16] VITALS: BP 186/82
[2018-05-22 05:46] LABS: BASOPHILS 0.1 % (0-2); EOSINOPHILS 1.5 % (0-7); HEMATOCRIT 32.4 % (42.0-54.0); HEMOGLOBIN 10.5 g/dL (13.5-17.5); IMMATURE GRANULOCYTES 0.9 % (0-5); LYMPHOCYTES 10.5 % (15-50); MCH 29.3 pg (26.0-34.0); MCHC 32.4 g/dL (31.0-37.0); MCV 90.5 fL (80.0-100.0); MEAN PLATELET VOLUME 9.8 fL (7.4-10.4); MONOCYTES 8.8 % (2-11); NEUTROPHILS 78.2 % (40-80); PLATELET COUNT 251 10x3/uL (130-400); RBC 3.58 10x6/uL (4.20-6.10); RDW 15.5 % (11.5-14.5)
[2018-05-22 05:49] LABS: WBC 9.6 10x3/uL (4.8-10.8)
[2018-05-22 06:02] LABS: ALBUMIN 1.9 g/dL (3.4-5.0); ANION GAP 13.3 mmol/L (8-16); BILIRUBIN - TOTAL 0.5 mg/dL (0.2-1.3); CALCIUM 8.3 mg/dL (8.5-10.1); CARBON DIOXIDE 25.3 mmol/L (21.0-32.0); CREATININE - SERUM 1.1 mg/dL (0.6-1.3); POTASSIUM - SERUM 3.6 mmol/L (3.5-5.1); PROTEIN - SERUM 5.9 g/dL (6.4-8.2)
[2018-05-22 07:41] VITALS: BP 178/76
[2018-05-22 11:36] VITALS: BP 205/83
[2018-05-22 16:08] VITALS: BP 195/86
== END 2018-05-22 19:06 | DRG 871 ==
LOC: D.ER 22:32 → D.M2 05-18 02:15 → D.SDCHOLD 05-20 10:48 → D.M2 05-22 19:06
PROVIDERS: Family Medicine
DX: A41.9 Sepsis, unspecified organism (principal); E43 Unspecified severe protein-calorie malnutrition; N39.0 Urinary tract infection, site not specified; N17.9 Acute kidney failure, unspecified; E87.0 Hyperosmolality and hypernatremia; J44.9 Chronic obstructive pulmonary disease, unspecified; I25.10 Atherosclerotic heart disease of native coronary artery without angina pectoris; I10 Essential (primary) hypertension; F01.50 Vascular dementia, unspecified severity, without behavioral disturbance, psychotic disturbance, mood disturbance, and anxiety; Z68.23 Body mass index [BMI] 23.0-23.9, adult; E11.65 Type 2 diabetes mellitus with hyperglycemia; D50.9 Iron deficiency anemia, unspecified

== ENCOUNTER 2018-05-30 12:43 | Inpatient (IN) | payer MEDICARE, OTHER ==
[~2018-05-30] VITALS: Ht 180.3 cm; Wt 67.1 kg
[~2018-05-30 12:43] MED LIST changes: +AUGMENTIN 875-11 TAB PO; +BACTRIM DS TABL1 TAB PO; +CALCIUM 600 +1 EAC3 PO; +PROTONIX40 MG PO
[2018-05-30 13:28] LABS: BASOPHILS 0.1 % (0-2); HEMATOCRIT 35.2 % (42.0-54.0); IMMATURE GRANULOCYTES 0.4 % (0-5); MCH 29.6 pg (26.0-34.0); MCHC 31.3 g/dL (31.0-37.0); MCV 94.6 fL (80.0-100.0); MONOCYTES 2.4 % (2-11); NEUTROPHILS 89.1 % (40-80); RBC 3.72 10x6/uL (4.20-6.10); RDW 17.2 % (11.5-14.5); WBC 16.4 10x3/uL (4.8-10.8)
[2018-05-30 13:36] LABS: PLATELET COUNT 320 10x3/uL (130-400)
[2018-05-30] MEDS ORDERED: ZOFRAN4 MG PO (13:45)
[2018-05-30 14:05] LABS: ALBUMIN 1.7 g/dL (3.4-5.0); ALKALINE PHOSPHATASE 78 U/L (46-116); BILIRUBIN - TOTAL 0.19 mg/dL (0.2-1.3); CARBON DIOXIDE 26.1 mmol/L (21.0-32.0); CKMB 2.1 U/L (0.0-3.6); CREATINE KINASE 63 UL (21-232); CREATININE - SERUM 1.8 mg/dL (0.6-1.3); GLUCOSE 132 mg/dL (74-106); POTASSIUM - SERUM 4.3 mmol/L (3.5-5.1); PROTEIN - SERUM 6.5 g/dL (6.4-8.2); UREA NITROGEN 49 mg/dL (7-18); eGFR NON AFRICAN AMERICAN 38 mL/min (90-120)
[2018-05-30 14:17] LABS: ALT (SGPT) 4 U/L (10-68); CALC OSMOLALITY 338 mosm/kg (275-300)
[2018-05-30 14:19] LABS: SODIUM 164 mmol/L (136-145)
[2018-05-30 14:20] LABS: CHLORIDE - SERUM 128 mmol/L (98-107)
[2018-05-30 14:27] LABS: APPEARANCE HAZY (CLEAR); BILIRUBIN NEGATIVE (NEGATIVE); COLOR YELLOW (YELLOW); GLUCOSE NEGATIVE (NEGATIVE); KETONE NEGATIVE (NEGATIVE); NITRITE NEGATIVE (NEGATIVE); PROTEIN NEGATIVE (NEGATIVE); SPECIFIC GRAVITY 1.015 (1.005-1.020); UROBILINOGEN NORMAL (NORMAL)
[2018-05-30 14:47] VITALS: BP 158/54
[2018-05-30 21:14] LABS: ALBUMIN 1.7 g/dL (3.4-5.0); BILIRUBIN - TOTAL 0.21 mg/dL (0.2-1.3); CALCIUM 8.2 mg/dL (8.5-10.1); CARBON DIOXIDE 25.2 mmol/L (21.0-32.0); CREATININE - SERUM 1.7 mg/dL (0.6-1.3); POTASSIUM - SERUM 4.3 mmol/L (3.5-5.1); PROTEIN - SERUM 6.4 g/dL (6.4-8.2)
[2018-05-30 21:18] LABS: ANION GAP 14.1 mmol/L (8-16)
[2018-05-30 21:20] VITALS: BP 149/53
[2018-05-30 21:26] LABS: BASOPHILS 0.1 % (0-2); EOSINOPHILS 1.3 % (0-7); HEMATOCRIT 37.7 % (42.0-54.0); HEMOGLOBIN 11.4 g/dL (13.5-17.5); IMMATURE GRANULOCYTES 0.6 % (0-5); LYMPHOCYTES 7.3 % (15-50); MCH 28.7 pg (26.0-34.0); MCHC 30.2 g/dL (31.0-37.0); MEAN PLATELET VOLUME 10.1 fL (7.4-10.4); MONOCYTES 4.6 % (2-11); NEUTROPHILS 86.1 % (40-80); PLATELET COUNT 304 10x3/uL (130-400); RBC 3.97 10x6/uL (4.20-6.10); WBC 15.6 10x3/uL (4.8-10.8)
[2018-05-30 22:00] VITALS: BP 149/53; BMI 20.6
[2018-05-31] VITALS (7 sets, daily range): BP systolic 144–174; BP diastolic 52–81
[2018-05-31 06:54] LABS: BASOPHILS 0.1 % (0-2); EOSINOPHILS 1.6 % (0-7); HEMATOCRIT 34.2 % (42.0-54.0); HEMOGLOBIN 10.3 g/dL (13.5-17.5); IMMATURE GRANULOCYTES 0.5 % (0-5); LYMPHOCYTES 6.1 % (15-50); MCH 28.7 pg (26.0-34.0); MCHC 30.1 g/dL (31.0-37.0); MCV 95.3 fL (80.0-100.0); MEAN PLATELET VOLUME 9.6 fL (7.4-10.4); MONOCYTES 4.5 % (2-11); NEUTROPHILS 87.2 % (40-80); PLATELET COUNT 269 10x3/uL (130-400); RBC 3.59 10x6/uL (4.20-6.10); RDW 17.1 % (11.5-14.5); WBC 15.4 10x3/uL (4.8-10.8)
[2018-05-31 07:15] LABS: ALBUMIN 1.6 g/dL (3.4-5.0); BILIRUBIN - TOTAL 0.18 mg/dL (0.2-1.3); CALCIUM 7.8 mg/dL (8.5-10.1); CARBON DIOXIDE 23.6 mmol/L (21.0-32.0); CREATININE - SERUM 1.6 mg/dL (0.6-1.3); POTASSIUM - SERUM 3.9 mmol/L (3.5-5.1); PROTEIN - SERUM 6.1 g/dL (6.4-8.2)
[2018-05-31 07:21] LABS: ANION GAP 14.3 mmol/L (8-16)
[2018-06-01 05:33] LABS: BASOPHILS 0.1 % (0-2); EOSINOPHILS 2.2 % (0-7); HEMATOCRIT 34.3 % (42.0-54.0); HEMOGLOBIN 10.1 g/dL (13.5-17.5); IMMATURE GRANULOCYTES 0.5 % (0-5); LYMPHOCYTES 8.3 % (15-50); MCH 28.7 pg (26.0-34.0); MCHC 29.4 g/dL (31.0-37.0); MEAN PLATELET VOLUME 10.2 fL (7.4-10.4); MONOCYTES 5.1 % (2-11); NEUTROPHILS 83.8 % (40-80); PLATELET COUNT 284 10x3/uL (130-400); RBC 3.52 10x6/uL (4.20-6.10); RDW 17.2 % (11.5-14.5)
[2018-06-01 05:48] LABS: MCV 97.4 fL (80.0-100.0)
[2018-06-01 06:54] LABS: ALBUMIN 1.5 g/dL (3.4-5.0); BILIRUBIN - TOTAL 0.23 mg/dL (0.2-1.3); CALCIUM 7.7 mg/dL (8.5-10.1); CARBON DIOXIDE 20.8 mmol/L (21.0-32.0); CREATININE - SERUM 1.3 mg/dL (0.6-1.3); POTASSIUM - SERUM 3.5 mmol/L (3.5-5.1); PROTEIN - SERUM 5.7 g/dL (6.4-8.2); THYROID STIMULATING HORMONE 2.54 uIU/mL (0.36-3.74)
[2018-06-01 06:58] LABS: ANION GAP 16.7 mmol/L (8-16)
[2018-06-01 08:00] VITALS: BP 136/67
[2018-06-01 08:06] VITALS: BP 173/68
[2018-06-01 11:58] VITALS: BP 159/62
[2018-06-01 17:03] VITALS: BP 145/43
[2018-06-02 00:11] VITALS: BP 136/67; BP 152/59
[2018-06-02 04:00] VITALS: BP 155/71
[2018-06-02 06:02] LABS: BASOPHILS 0.1 % (0-2); HEMOGLOBIN 10.5 g/dL (13.5-17.5); IMMATURE GRANULOCYTES 0.6 % (0-5); LYMPHOCYTES 10.7 % (15-50); MCH 28.7 pg (26.0-34.0); MCV 95.6 fL (80.0-100.0); MEAN PLATELET VOLUME 10.3 fL (7.4-10.4); MONOCYTES 4.3 % (2-11); NEUTROPHILS 81.3 % (40-80); PLATELET COUNT 249 10x3/uL (130-400); RBC 3.66 10x6/uL (4.20-6.10); RDW 17.1 % (11.5-14.5); WBC 12.5 10x3/uL (4.8-10.8)
[2018-06-02 06:54] LABS: ALBUMIN 1.5 g/dL (3.4-5.0); BILIRUBIN - TOTAL 0.13 mg/dL (0.2-1.3); CALCIUM 7.6 mg/dL (8.5-10.1); CARBON DIOXIDE 17.8 mmol/L (21.0-32.0); CREATININE - SERUM 1.1 mg/dL (0.6-1.3); POTASSIUM - SERUM 3.8 mmol/L (3.5-5.1); PROTEIN - SERUM 5.1 g/dL (6.4-8.2)
[2018-06-02 11:30] VITALS: BP 161/55
[2018-06-02 14:05] VITALS: Ht 180.3 cm; Wt 67.1 kg
[2018-06-02 16:30] VITALS: BP 154/59
[2018-06-02 17:00] VITALS: BP 149/80
[2018-06-02 23:37] VITALS: BP 146/50
[2018-06-03 05:00] VITALS: BP 89/42
[2018-06-03 06:00] LABS: BASOPHILS 0.1 % (0-2); EOSINOPHILS 2.5 % (0-7); HEMATOCRIT 32.6 % (42.0-54.0); HEMOGLOBIN 9.8 g/dL (13.5-17.5); IMMATURE GRANULOCYTES 0.6 % (0-5); LYMPHOCYTES 10.4 % (15-50); MCH 28.6 pg (26.0-34.0); MCHC 30.1 g/dL (31.0-37.0); MEAN PLATELET VOLUME 10.5 fL (7.4-10.4); MONOCYTES 4.3 % (2-11); NEUTROPHILS 82.1 % (40-80); PLATELET COUNT 267 10x3/uL (130-400); RBC 3.43 10x6/uL (4.20-6.10); RDW 17.1 % (11.5-14.5); WBC 12.2 10x3/uL (4.8-10.8)
[2018-06-03 06:29] LABS: ALBUMIN 1.5 g/dL (3.4-5.0); ALKALINE PHOSPHATASE 58 U/L (46-116); BILIRUBIN - TOTAL 0.17 mg/dL (0.2-1.3); CALC OSMOLALITY 311 mosm/kg (275-300); CALCIUM 7.7 mg/dL (8.5-10.1); CARBON DIOXIDE 21.1 mmol/L (21.0-32.0); GLUCOSE 85 mg/dL (74-106); POTASSIUM - SERUM 3.7 mmol/L (3.5-5.1); PRO BNP 3642 pg/mL (0-450); PROTEIN - SERUM 4.8 g/dL (6.4-8.2); SODIUM 156 mmol/L (136-145); UREA NITROGEN 24 mg/dL (7-18); eGFR NON AFRICAN AMERICAN 76 mL/min (90-120)
[2018-06-03 06:32] LABS: ALT (SGPT) 3 U/L (10-68); CHLORIDE - SERUM 125 mmol/L (98-107)
[2018-06-03 08:02] VITALS: BP 123/64
[2018-06-03 11:38] VITALS: BP 97/49
[2018-06-03 15:40] VITALS: BP 164/47
[2018-06-03 22:16] VITALS: BP 139/64
[2018-06-04 06:36] LABS: CALC OSMOLALITY 307 mosm/kg (275-300); CALCIUM 7.7 mg/dL (8.5-10.1); CARBON DIOXIDE 20.6 mmol/L (21.0-32.0); CREATININE - SERUM 0.9 mg/dL (0.6-1.3); GLUCOSE 115 mg/dL (74-106); POTASSIUM - SERUM 3.6 mmol/L (3.5-5.1); PRO BNP 4499 pg/mL (0-450); SODIUM 153 mmol/L (136-145); UREA NITROGEN 20 mg/dL (7-18); eGFR NON AFRICAN AMERICAN 85 mL/min (90-120)
[2018-06-04 06:42] VITALS: BP 149/71
[2018-06-04 06:53] LABS: CHLORIDE - SERUM 121 mmol/L (98-107)
[2018-06-04 07:54] LABS: BASOPHILS 0.1 % (0-2); EOSINOPHILS 2.2 % (0-7); HEMATOCRIT 32.2 % (42.0-54.0); HEMOGLOBIN 9.9 g/dL (13.5-17.5); LYMPHOCYTES 13.8 % (15-50); MCH 28.5 pg (26.0-34.0); MCHC 30.7 g/dL (31.0-37.0); MONOCYTES 5.3 % (2-11); NEUTROPHILS 77.6 % (40-80); PLATELET COUNT 253 10x3/uL (130-400); RBC 3.47 10x6/uL (4.20-6.10); RDW 16.9 % (11.5-14.5); WBC 11.2 10x3/uL (4.8-10.8)
[2018-06-04 08:05] LABS: MCV 92.8 fL (80.0-100.0)
[2018-06-04] MEDS ORDERED: IPRAT-ALBUT 0.5-3 ML UPD (10:44)
[2018-06-04 11:30] VITALS: BP 149/71
[2018-06-04 13:57] VITALS: BP 130/60
== END 2018-06-04 17:41 | DRG 682 ==
LOC: D.ER 12:43 → D.M2 15:19
PROVIDERS: Family Medicine
DX: N17.9 Acute kidney failure, unspecified (principal); E43 Unspecified severe protein-calorie malnutrition; E87.0 Hyperosmolality and hypernatremia; I69.919 Unspecified symptoms and signs involving cognitive functions following unspecified cerebrovascular disease; R40.2363 Coma scale, best motor response, obeys commands, at hospital admission; R40.2143 Coma scale, eyes open, spontaneous, at hospital admission; R40.2243 Coma scale, best verbal response, confused conversation, at hospital admission; I11.0 Hypertensive heart disease with heart failure; I50.9 Heart failure, unspecified; F01.50 Vascular dementia, unspecified severity, without behavioral disturbance, psychotic disturbance, mood disturbance, and anxiety; I25.10 Atherosclerotic heart disease of native coronary artery without angina pectoris; J44.9 Chronic obstructive pulmonary disease, unspecified; E11.9 Type 2 diabetes mellitus without complications; B35.1 Tinea unguium; R09.02 Hypoxemia

== ENCOUNTER 2018-06-10 08:10 | Inpatient (IN) | payer MEDICARE, OTHER ==
[~2018-06-10] VITALS: Ht 180.3 cm; Wt 66.2 kg
[~2018-06-10 08:10] MED LIST changes: +IPRAT-ALBUT 0.5-3 ML UPD; +ZOFRAN4 MG PO
[2018-06-10] MEDS ORDERED: ADVIL200 MG PO (08:16)
[2018-06-10] MEDS ORDERED: ATIVAN0.5 MG PO (08:17)
[2018-06-10 08:59] LABS: MAGNESIUM - SERUM 1.9 mg/dL (1.8-2.4)
[2018-06-10 09:00] VITALS: BP 189/73
[2018-06-10 10:00] VITALS: BP 185/73
[2018-06-10 11:00] VITALS: BP 159/62
[2018-06-10 12:00] VITALS: BP 167/67
[2018-06-10] MEDS ORDERED: BIOFREEZE118 ML TOPICAL (14:35)
[2018-06-10 16:13] LABS: BASOPHILS 0 % (0-2); EOSINOPHILS 1.6 % (0-7); HEMATOCRIT 31.4 % (42.0-54.0); HEMOGLOBIN 9.7 g/dL (13.5-17.5); IMMATURE GRANULOCYTES 0.3 % (0-5); LYMPHOCYTES 9.8 % (15-50); MCH 28.7 pg (26.0-34.0); MCHC 30.9 g/dL (31.0-37.0); MCV 92.9 fL (80.0-100.0); MONOCYTES 5.5 % (2-11); NEUTROPHILS 82.8 % (40-80); PLATELET COUNT 227 10x3/uL (130-400); RBC 3.38 10x6/uL (4.20-6.10); RDW 17.3 % (11.5-14.5)
[2018-06-10 16:15] VITALS: BP 167/67; BMI 20.4
[2018-06-10 16:31] LABS: ALBUMIN 1.6 g/dL (3.4-5.0); BILIRUBIN - TOTAL 0.28 mg/dL (0.2-1.3); CARBON DIOXIDE 28.4 mmol/L (21.0-32.0); CREATININE - SERUM 1.1 mg/dL (0.6-1.3); PROTEIN - SERUM 5.4 g/dL (6.4-8.2)
[2018-06-10 16:35] LABS: ANION GAP 11.2 mmol/L (8-16); POTASSIUM - SERUM 2.6 mmol/L (3.5-5.1)
[2018-06-10 20:00] VITALS: BP 156/68
[2018-06-11 04:00] VITALS: BP 185/80
[2018-06-11 07:00] LABS: BASOPHILS 0.1 % (0-2); EOSINOPHILS 2.1 % (0-7); HEMATOCRIT 31.1 % (42.0-54.0); HEMOGLOBIN 9.6 g/dL (13.5-17.5); IMMATURE GRANULOCYTES 0.2 % (0-5); LYMPHOCYTES 15.3 % (15-50); MCH 28.4 pg (26.0-34.0); MCHC 30.9 g/dL (31.0-37.0); MEAN PLATELET VOLUME 9.8 fL (7.4-10.4); MONOCYTES 6.1 % (2-11); NEUTROPHILS 76.2 % (40-80); PLATELET COUNT 203 10x3/uL (130-400); RBC 3.38 10x6/uL (4.20-6.10); RDW 17.3 % (11.5-14.5); WBC 8.6 10x3/uL (4.8-10.8)
[2018-06-11 07:51] LABS: ALBUMIN 1.6 g/dL (3.4-5.0); BILIRUBIN - TOTAL 0.43 mg/dL (0.2-1.3); CARBON DIOXIDE 28.7 mmol/L (21.0-32.0); CREATININE - SERUM 1.1 mg/dL (0.6-1.3); PROTEIN - SERUM 5.3 g/dL (6.4-8.2)
[2018-06-11 07:53] LABS: ANION GAP 11.3 mmol/L (8-16)
[2018-06-11 08:28] VITALS: BP 185/76
[2018-06-11 12:15] VITALS: BP 186/83
[2018-06-11 14:12] VITALS: Ht 180.3 cm; Wt 66.2 kg
[2018-06-11 16:39] VITALS: BP 152/54
[2018-06-11 20:00] VITALS: BP 93/60
[2018-06-12 04:00] VITALS: BP 136/74
[2018-06-12 04:33] LABS: BASOPHILS 0 % (0-2); EOSINOPHILS 2.1 % (0-7); HEMATOCRIT 32.8 % (42.0-54.0); HEMOGLOBIN 10.1 g/dL (13.5-17.5); IMMATURE GRANULOCYTES 0.4 % (0-5); LYMPHOCYTES 8.7 % (15-50); MCH 28.4 pg (26.0-34.0); MCHC 30.8 g/dL (31.0-37.0); MCV 92.1 fL (80.0-100.0); MEAN PLATELET VOLUME 9.8 fL (7.4-10.4); MONOCYTES 5.1 % (2-11); NEUTROPHILS 83.7 % (40-80); PLATELET COUNT 222 10x3/uL (130-400); RBC 3.56 10x6/uL (4.20-6.10); RDW 17.4 % (11.5-14.5); WBC 9.5 10x3/uL (4.8-10.8)
[2018-06-12 04:58] LABS: ALBUMIN 1.7 g/dL (3.4-5.0); BILIRUBIN - TOTAL 0.48 mg/dL (0.2-1.3); CALCIUM 7.3 mg/dL (8.5-10.1); CARBON DIOXIDE 27.1 mmol/L (21.0-32.0); CREATININE - SERUM 1.1 mg/dL (0.6-1.3); POTASSIUM - SERUM 3.4 mmol/L (3.5-5.1); PROTEIN - SERUM 5.5 g/dL (6.4-8.2)
[2018-06-12 05:03] LABS: ANION GAP 10.3 mmol/L (8-16)
[2018-06-12 21:00] VITALS: BP 138/54
[2018-06-13 04:00] VITALS: BP 137/48
[2018-06-13 06:14] LABS: BASOPHILS 0.1 % (0-2); EOSINOPHILS 1.1 % (0-7); HEMATOCRIT 32.1 % (42.0-54.0); HEMOGLOBIN 9.8 g/dL (13.5-17.5); IMMATURE GRANULOCYTES 0.4 % (0-5); LYMPHOCYTES 17.6 % (15-50); MCH 28.4 pg (26.0-34.0); MCHC 30.5 g/dL (31.0-37.0); MEAN PLATELET VOLUME 10.6 fL (7.4-10.4); MONOCYTES 6.7 % (2-11); NEUTROPHILS 74.1 % (40-80); PLATELET COUNT 264 10x3/uL (130-400); RBC 3.45 10x6/uL (4.20-6.10); WBC 8.1 10x3/uL (4.8-10.8)
[2018-06-13 06:34] LABS: ALBUMIN 1.8 g/dL (3.4-5.0); ANION GAP 11.5 mmol/L (8-16); BILIRUBIN - TOTAL 0.47 mg/dL (0.2-1.3); CALCIUM 7.2 mg/dL (8.5-10.1); CARBON DIOXIDE 25.8 mmol/L (21.0-32.0); CREATININE - SERUM 1.1 mg/dL (0.6-1.3); POTASSIUM - SERUM 3.3 mmol/L (3.5-5.1); PROTEIN - SERUM 5.7 g/dL (6.4-8.2)
[2018-06-13 08:28] VITALS: BP 139/62
[2018-06-13 13:18] VITALS: BP 112/60
[2018-06-13 16:08] VITALS: BP 132/51
[2018-06-13 20:00] VITALS: BP 120/41
[2018-06-14] VITALS: BP 132/53
[2018-06-14 04:00] VITALS: BP 130/50
[2018-06-14 07:59] VITALS: BP 133/64
[2018-06-14 08:53] LABS: ALBUMIN 1.7 g/dL (3.4-5.0); ANION GAP 16.7 mmol/L (8-16); BILIRUBIN - TOTAL 0.22 mg/dL (0.2-1.3); CALCIUM 7.1 mg/dL (8.5-10.1); CARBON DIOXIDE 21.6 mmol/L (21.0-32.0); CREATININE - SERUM 1.1 mg/dL (0.6-1.3); POTASSIUM - SERUM 4.3 mmol/L (3.5-5.1); PROTEIN - SERUM 5.2 g/dL (6.4-8.2)
[2018-06-14 12:18] LABS: BASOPHILS 0.1 % (0-2); EOSINOPHILS 1.2 % (0-7); HEMATOCRIT 29.6 % (42.0-54.0); HEMOGLOBIN 9.1 g/dL (13.5-17.5); IMMATURE GRANULOCYTES 0.4 % (0-5); LYMPHOCYTES 16.1 % (15-50); MCH 28.4 pg (26.0-34.0); MCHC 30.7 g/dL (31.0-37.0); MCV 92.5 fL (80.0-100.0); MONOCYTES 7.1 % (2-11); NEUTROPHILS 75.1 % (40-80); PLATELET COUNT 250 10x3/uL (130-400); RDW 18.2 % (11.5-14.5); WBC 9.3 10x3/uL (4.8-10.8)
[2018-06-14 14:11] LABS: OVA + PARASITE EXAM Final report (())
[2018-06-14 16:05] VITALS: BP 99/58
[2018-06-14 16:14] LABS: APPEARANCE SL CLDY (CLEAR); BILIRUBIN NEGATIVE (NEGATIVE); COLOR YELLOW (YELLOW); GLUCOSE NEGATIVE (NEGATIVE); KETONE NEGATIVE (NEGATIVE); NITRITE NEGATIVE (NEGATIVE); PROTEIN NEGATIVE (NEGATIVE); UROBILINOGEN NORMAL (NORMAL)
[2018-06-14 16:16] LABS: AMORPHOUS SEDIMENT <1+ /lpf (NONE SEEN); BACTERIA FEW /hpf (NONE SEEN); EPITHELIAL CELLS 0-5 /hpf (0-5); WHITE CELLS - URINE 0-5 /hpf (0-5); YEAST >1+ /hpf (NONE SEEN)
[2018-06-14 20:56] VITALS: BP 139/53
[2018-06-15 04:55] VITALS: BP 105/70
[2018-06-15 07:09] LABS: BASOPHILS 0.1 % (0-2); EOSINOPHILS 0.8 % (0-7); HEMATOCRIT 29.6 % (42.0-54.0); HEMOGLOBIN 9.1 g/dL (13.5-17.5); IMMATURE GRANULOCYTES 0.4 % (0-5); LYMPHOCYTES 17.3 % (15-50); MCH 28.4 pg (26.0-34.0); MCHC 30.7 g/dL (31.0-37.0); MCV 92.5 fL (80.0-100.0); MEAN PLATELET VOLUME 10.2 fL (7.4-10.4); MONOCYTES 7.2 % (2-11); NEUTROPHILS 74.2 % (40-80); PLATELET COUNT 217 10x3/uL (130-400); RDW 18.3 % (11.5-14.5); WBC 7.9 10x3/uL (4.8-10.8)
[2018-06-15 07:21] LABS: ALBUMIN 1.7 g/dL (3.4-5.0); BILIRUBIN - TOTAL 0.25 mg/dL (0.2-1.3); CALCIUM 7.2 mg/dL (8.5-10.1); CARBON DIOXIDE 21.8 mmol/L (21.0-32.0); CREATININE - SERUM 1.2 mg/dL (0.6-1.3); PROTEIN - SERUM 5.4 g/dL (6.4-8.2)
[2018-06-15 07:22] LABS: ANION GAP 11.8 mmol/L (8-16); POTASSIUM - SERUM 3.6 mmol/L (3.5-5.1)
[2018-06-15 08:49] VITALS: BP 143/81
[2018-06-15] MEDS ORDERED: FLAGYL500 MG PO (11:22)
[2018-06-15 15:56] VITALS: BP 162/65
== END 2018-06-15 18:48 | DRG 640 ==
LOC: D.ER 08:10 → D.EDHOLD 10:24 → D.MS 10:24
PROVIDERS: Emergency Medicine; Family Medicine; Internal Medicine
DX: E87.0 Hyperosmolality and hypernatremia (principal); G93.41 Metabolic encephalopathy; I13.0 Hypertensive heart and chronic kidney disease with heart failure and stage 1 through stage 4 chronic kidney disease, or unspecified chronic kidney disease; F05 Delirium due to known physiological condition; E86.0 Dehydration; Z66 Do not resuscitate; E11.22 Type 2 diabetes mellitus with diabetic chronic kidney disease; E11.65 Type 2 diabetes mellitus with hyperglycemia; N18.9 Chronic kidney disease, unspecified; I50.9 Heart failure, unspecified; G20 Parkinson's disease; R13.10 Dysphagia, unspecified; Z95.0 Presence of cardiac pacemaker; I48.91 Unspecified atrial fibrillation; J44.9 Chronic obstructive pulmonary disease, unspecified; F03.90 Unspecified dementia, unspecified severity, without behavioral disturbance, psychotic disturbance, mood disturbance, and anxiety; L89.152 Pressure ulcer of sacral region, stage 2; R19.7 Diarrhea, unspecified; E87.6 Hypokalemia

== ENCOUNTER 2018-08-01 19:35 | Inpatient (IN) | payer MEDICARE, OTHER ==
[~2018-08-01] VITALS: Ht 180.3 cm; Wt 61.4 kg
--- NOTE | ~2018-08-01 | MORECARE ---
CASE MANAGEMENT DISCHARGE SUMMARY PATIENT: JAYLON VICTOR UNIT: [id number] ADM DATE: 08/01/18 AGE: 82 : 33 SEX: M ROOM/BED: D.1210 AUTHOR: CLARADOC PHYSICIAN: REFERRING PHYSICIAN: CATHY BELL MD DATE OF SERVICE: 08/04/18 Discharge Plan Patient Name: JAYLON VICTOR Facility: [facility]:[place] : 1935 Planned Disposition: [facility] Facility Anticipated Discharge Date: Discharge Date: Expected LOS: Initial Reviewer: [email or web address] Initial Review Date: 08/04/2018 Generated: 08/04/18 7:14 pm Comments DCP- Discharge Planning Updated by [email or web address]: Peg Dean on 08/04/18 5:[address] Patient Name: JAYLON VICTOR Admission Status: ER Accout number: [id number] Admission Date: 08-01-2018 : 1935 Admission Diagnosis: Attending: CATHY BELL Current LOS: 3 Anticipated DC Date: Planned Disposition: [facility] Facility Primary Insurance: MEDICARE A & B Discharge Planning Comments: CM met with patient @ bedside slightly confused. Plan to return back to [facility]. CM called [facility] to see if patient was under Hospice Care. Administration at facility stated that he hasn't been under hospice care in their facility. Patient daughter had changed her mind about hospice after patient was transferred to their facility. CM will continue to follow and assist as needed with discharge planning / needs. Pipe Washer: Peg Dean DCPIA - Discharge Planning Initial Assessment Updated by [email or web address]: Peg Dean on 08/04/18 6:09 pm * Is the patient Alert and Oriented? Yes * Preadmission Environment [facility] Facility * Facility Name [facility] * List name and contact numbers for known caregivers / representatives who currently or will assist patient after discharge: Carolynn Ricks [phone] * Verbal permission to speak to the caregivers and representatives has been obtained from the patient. N/A * Additional services required to return to the preadmission environment? No * Can the patient safely return to the preadmission environment? Yes * Has this patient been hospitalized within the prior 30 days at any hospital? No Last DP export: 08/04/18 5:08 Patient Name: JAYLON VICTOR Page 33099 at 1815 All edits/amendments must be made on the electronic document DICTATION DATE: 08/04/181813 SUPERVISING CHEF: TYRESE 08/04/181813 RPT#: [id number] DC DATE: STATUS: [facility]M [facility] [address] [place] [address] END OF REPORT
--- NOTE | ~2018-08-01 | MORECARE ---
CASE MANAGEMENT DISCHARGE SUMMARY PATIENT: JAYLON VICTOR UNIT: [id number] ADM DATE: 08/01/18 AGE: 82 : 33 SEX: M ROOM/BED: D.1210 AUTHOR: JOSE ELIZABETH PHYSICIAN: REFERRING PHYSICIAN: CATHY BELL MD DATE OF SERVICE: 08/04/18 Discharge Plan Patient Name: JAYLON VICTOR Facility: [facility]:[place] : 1935 Planned Disposition: Jail Facility Anticipated Discharge Date: Discharge Date: Expected LOS: Initial Reviewer: [email or web address] Initial Review Date: 08/04/2018 Generated: 08/04/18 7:08 pm Patient Name: JAYLON VICTOR Page [id number] at 1808 All edits/amendments must be made on the electronic document DICTATION DATE: 08/04/181806 BURNER TENDER: TYRESE 08/04/181806 RPT#: [id number] DC DATE: STATUS: ADM IN [facility] [address] [place] [address] END OF REPORT
--- NOTE | ~2018-08-01 | MORECARE ---
CASE MANAGEMENT DISCHARGE SUMMARY PATIENT: JAYLON VICTOR UNIT: [id number] ADM DATE: 08/01/18 AGE: 82 : 33 SEX: M ROOM/BED: D.1210 AUTHOR: CLARADOC PHYSICIAN: REFERRING PHYSICIAN: CATHY BELL MD DATE OF SERVICE: 08/08/18 Discharge Plan Patient Name: JAYLON VICTOR Facility: [facility]:[place] : 1935 Planned Disposition: Half-Way Facility Anticipated Discharge Date: Discharge Date: Expected LOS: Initial Reviewer: [email or web address] Initial Review Date: 08/04/2018 Generated: 08/08/18 6:34 pm Comments DCP- Discharge Planning Updated by [email or web address]: Peg Dean on 08/08/18 4:[address] CM notified of discharge. [facility] called and spoke with Nakia. Updated records faxed to facility. Plan for patient to be discharged to care home care bed (Medicaid). Nurse will call report to accepting nurse. Ambulance will transport patient to facility. CM notified patient daughter of discharge. CM will continue to follow and assist with discharge needs. DCP- Discharge Planning Updated by [email or web address]: Peg Dean on 08/04/18 5:[address] Patient Name: JAYLON VICTOR Admission Status: ER Accout number: [id number] Admission Date: 08-01-2018 : 1935 Admission Diagnosis: Attending: CATHY BELL Current LOS: 3 Anticipated DC Date: Planned Disposition: Half-Way Facility Primary Insurance: MEDICARE A & B Discharge Planning Comments: CM met with patient @ bedside slightly confused. Plan to return back to [facility]. CM called [facility] to see if patient was under Hospice Care. Administration at facility stated that he hasn't been under hospice care in their facility. Patient daughter had changed her mind about hospice after patient was transferred to their facility. CM will continue to follow and assist as needed with discharge planning / needs. Baseball Coach: Peg Dean DCPIA - Discharge Planning Initial Assessment Updated by [email or web address]: Peg Dean on 08/04/18 6:09 pm * Is the patient Alert and Oriented? Yes * Preadmission Environment Half-Way Facility * Facility Name [facility] * List name and contact numbers for known caregivers / representatives who currently or will assist patient after discharge: Carolynn Millicent [phone] * Verbal permission to speak to the caregivers and representatives has been obtained from the patient. N/A * Additional services required to return to the preadmission environment? No * Can the patient safely return to the preadmission environment? Yes * Has this patient been hospitalized within the prior 30 days at any hospital? No Last DP export: 08/08/18 2:32 Patient Name: JAYLON VICTOR Page [id number] at 1734 All edits/amendments must be made on the electronic document DICTATION DATE: 08/08/181733 PEDIATRICIAN: TYRESE 08/08/181733 RPT#: [id number] DC DATE: STATUS: ADM IN [facility] [address] [place] [address] END OF REPORT
--- NOTE | ~2018-08-01 | MORECARE ---
CASE MANAGEMENT DISCHARGE SUMMARY PATIENT: JAYLON VICTOR UNIT: [id number] ADM DATE: 08/01/18 AGE: 82 : 33 SEX: M ROOM/BED: D.1210 AUTHOR: CLARADOC PHYSICIAN: REFERRING PHYSICIAN: CATHY BELL MD DATE OF SERVICE: 08/11/18 Discharge Plan Patient Name: JAYLON VICTOR Facility: [facility]:[place] : 1935 Planned Disposition: Correction Facility Anticipated Discharge Date: Discharge Date: 08/08/2018 Expected LOS: Initial Reviewer: [email or web address] Initial Review Date: 08/04/2018 Generated: 08/11/18 10:56 am Comments DCP- Discharge Planning Updated by [email or web address]: Peg Dean on 08/08/18 4:[address] CM notified of discharge. [facility] called and spoke with Nakia. Updated records faxed to facility. Plan for patient to be discharged to senior care care bed (Medicaid). Nurse will call report to accepting nurse. Ambulance will transport patient to facility. CM notified patient daughter of discharge. CM will continue to follow and assist with discharge needs. DCP- Discharge Planning Updated by [email or web address]: Peg Dean on 08/04/18 5:[address] Patient Name: JAYLON VICTOR Admission Status: ER Accout number: [id number] Admission Date: 08-01-2018 : 1935 Admission Diagnosis: Attending: CATHY BELL Current LOS: 3 Anticipated DC Date: Planned Disposition: Correction Facility Primary Insurance: MEDICARE A & B Discharge Planning Comments: CM met with patient @ bedside slightly confused. Plan to return back to [facility]. CM called [facility] to see if patient was under Hospice Care. Administration at facility stated that he hasn't been under hospice care in their facility. Patient daughter had changed her mind about hospice after patient was transferred to their facility. CM will continue to follow and assist as needed with discharge planning / needs. Chemical Project Engineer: Peg Dean DCPIA - Discharge Planning Initial Assessment Updated by [email or web address]: Peg Dean on 08/04/18 6:09 pm * Is the patient Alert and Oriented? Yes * Preadmission Environment Correction Facility * Facility Name [facility] * List name and contact numbers for known caregivers / representatives who currently or will assist patient after discharge: Carolynn Ricks [phone] * Verbal permission to speak to the caregivers and representatives has been obtained from the patient. N/A * Additional services required to return to the preadmission environment? No * Can the patient safely return to the preadmission environment? Yes * Has this patient been hospitalized within the prior 30 days at any hospital? No Coverage Notice Reviewer: [email or web address] Daryl Dean Notice Issued Date-Time: 08/08/2018 16:50 Notice Type: IM Discharge Notice Notice Delivered To: Family Member Relationship to Patient: Daughter Illustrator Set Name: Delivery Method: PHONE - Phone Charisma Days: Prior Verbal Notification: Recipient Understood Notice: Yes Recipient Signature: Yes Med Rec Note Co-signed by Attending: Coverage Notice Comment: Last DP export: 08/08/18 4:34 Patient Name: JAYLON VICTOR Page 10701 at 0956 All edits/amendments must be made on the electronic document DICTATION DATE: 08/11/18955 PUBLIC AFFAIRS SPECIALIST: TYRESE 08/11/18955 RPT#: [id number] DC DATE:08/08/18 STATUS: DIS IN [facility] [address] [place] [address] END OF REPORT
--- NOTE | ~2018-08-01 | MORECARE ---
CASE MANAGEMENT DISCHARGE SUMMARY PATIENT: JAYLON VICTOR UNIT: [id number] ADM DATE: 08/01/18 AGE: 82 : 33 SEX: M ROOM/BED: D.1210 AUTHOR: CLARADOC PHYSICIAN: REFERRING PHYSICIAN: CATHY BELL MD DATE OF SERVICE: 08/08/18 Discharge Plan Patient Name: JAYLON VICTOR Facility: [facility]:[place] : 1935 Planned Disposition: Custodial Facility Anticipated Discharge Date: Discharge Date: Expected LOS: Initial Reviewer: [email or web address] Initial Review Date: 08/04/2018 Generated: 08/08/18 4:32 pm Comments DCP- Discharge Planning Updated by [email or web address]: Peg Dean on 08/04/18 5:[address] Patient Name: JAYLON VICTOR Admission Status: ER Accout number: [id number] Admission Date: 08-01-2018 : 1935 Admission Diagnosis: Attending: CATHY BELL Current LOS: 3 Anticipated DC Date: Planned Disposition: Custodial Facility Primary Insurance: MEDICARE A & B Discharge Planning Comments: CM met with patient @ bedside slightly confused. Plan to return back to [facility]. CM called [facility] to see if patient was under Hospice Care. Administration at facility stated that he hasn't been under hospice care in their facility. Patient daughter had changed her mind about hospice after patient was transferred to their facility. CM will continue to follow and assist as needed with discharge planning / needs. Ward Supervisor: Peg Dean DCPIA - Discharge Planning Initial Assessment Updated by [email or web address]: Peg Dean on 08/04/18 6:09 pm * Is the patient Alert and Oriented? Yes * Preadmission Environment Custodial Facility * Facility Name [facility] * List name and contact numbers for known caregivers / representatives who currently or will assist patient after discharge: Carolynn Ricks [phone] * Verbal permission to speak to the caregivers and representatives has been obtained from the patient. N/A * Additional services required to return to the preadmission environment? No * Can the patient safely return to the preadmission environment? Yes * Has this patient been hospitalized within the prior 30 days at any hospital? No External Providers External Provider: [facility] Next Contact Date: Service Request Date: Service Type: Resolution: Reviewer: Comments: Last DP export: 08/04/18 5:14 Patient Name: JAYLON VICTOR Page [id number] at 1532 All edits/amendments must be made on the electronic document DICTATION DATE: 08/08/181531 MANAGER CABLE: TYRESE 08/08/181531 RPT#: [id number] DC DATE: STATUS: ADM IN [facility] [address] [place] [address] END OF REPORT
[~2018-08-01 19:35] MED LIST changes: +ADVIL200 MG PO; +BIOFREEZE118 ML TOPICAL; +FLAGYL500 MG PO
[2018-08-01 21:06] LABS: BASOPHILS 0.3 % (0-2); EOSINOPHILS 0.3 % (0-7); HEMATOCRIT 37.4 % (42.0-54.0); HEMOGLOBIN 11.8 g/dL (13.5-17.5); IMMATURE GRANULOCYTES 1.1 % (0-5); LYMPHOCYTES 16.5 % (15-50); MCH 31.6 pg (26.0-34.0); MCHC 31.6 g/dL (31.0-37.0); MEAN PLATELET VOLUME 9.4 fL (7.4-10.4); MONOCYTES 5.9 % (2-11); NEUTROPHILS 75.9 % (40-80); PLATELET COUNT 327 10x3/uL (130-400); RBC 3.74 10x6/uL (4.20-6.10); RDW 17.8 % (11.5-14.5); WBC 10.7 10x3/uL (4.8-10.8)
[2018-08-01 21:35] VITALS: BP 163/70
[2018-08-01 21:35] LABS: ALBUMIN 2.1 g/dL (3.4-5.0); ALKALINE PHOSPHATASE 74 U/L (46-116); ALT (SGPT) 9 U/L (10-68); BILIRUBIN - TOTAL 0.22 mg/dL (0.2-1.3); CALC OSMOLALITY 307 mosm/kg (275-300); CARBON DIOXIDE 27.9 mmol/L (21.0-32.0); CHLORIDE - SERUM 105 mmol/L (98-107); CREATININE - SERUM 1.2 mg/dL (0.6-1.3); GLUCOSE 239 mg/dL (74-106); POTASSIUM - SERUM 4.2 mmol/L (3.5-5.1); PROTEIN - SERUM 6.3 g/dL (6.4-8.2); SODIUM 146 mmol/L (136-145); UREA NITROGEN 37 mg/dL (7-18); eGFR NON AFRICAN AMERICAN 61 mL/min (90-120)
[2018-08-01 21:42] LABS: CKMB 2.9 U/L (0.0-3.6); CREATINE KINASE 56 UL (21-232); PRO BNP 3488 pg/mL (0-450); TROPONIN-I 0.017 ng/mL (0.000-0.060)
[2018-08-01] MEDS ORDERED: SINEMET CR 50-1 EACH (23:19)
[2018-08-02 00:37] VITALS: BP 163/72
[2018-08-02 02:26] VITALS: BP 163/72; BMI 19.2
[2018-08-02] MEDS ORDERED: OS-CAL500 MG PO (03:23)
[2018-08-02] MEDS ORDERED: IPRAT-ALBUT 0.5-3 ML UPD (03:25)
[2018-08-02] MEDS ORDERED: MUCINEX600 MG PO (03:27)
[2018-08-02] MEDS ORDERED: IBUPROFEN200 MG PO (03:28)
[2018-08-02] MEDS ORDERED: ZOFRAN4 MG PO (03:35)
[2018-08-02 04:00] VITALS: BP 158/65
[2018-08-02 06:26] LABS: BASOPHILS 0.2 % (0-2); EOSINOPHILS 0.4 % (0-7); HEMATOCRIT 35.5 % (42.0-54.0); HEMOGLOBIN 11.2 g/dL (13.5-17.5); IMMATURE GRANULOCYTES 1.2 % (0-5); LYMPHOCYTES 17.5 % (15-50); MCH 31.6 pg (26.0-34.0); MCHC 31.5 g/dL (31.0-37.0); MCV 100.3 fL (80.0-100.0); MEAN PLATELET VOLUME 9.4 fL (7.4-10.4); MONOCYTES 7.1 % (2-11); NEUTROPHILS 73.6 % (40-80); RBC 3.54 10x6/uL (4.20-6.10); RDW 17.8 % (11.5-14.5); WBC 9.2 10x3/uL (4.8-10.8)
[2018-08-02 06:31] LABS: PLATELET COUNT 261 10x3/uL (130-400)
[2018-08-02 06:57] LABS: CALC OSMOLALITY 298 mosm/kg (275-300); CALCIUM 9.1 mg/dL (8.5-10.1); CARBON DIOXIDE 29.6 mmol/L (21.0-32.0); CHLORIDE - SERUM 107 mmol/L (98-107); CKMB 2.4 U/L (0.0-3.6); CREATINE KINASE 46 UL (21-232); CREATININE - SERUM 1.1 mg/dL (0.6-1.3); POTASSIUM - SERUM 4.3 mmol/L (3.5-5.1); SODIUM 145 mmol/L (136-145); TROPONIN-I 0.026 ng/mL (0.000-0.060); UREA NITROGEN 41 mg/dL (7-18); eGFR NON AFRICAN AMERICAN 68 mL/min (90-120)
[2018-08-02 06:59] LABS: GLUCOSE 93 mg/dL (74-106)
[2018-08-02 09:17] VITALS: BMI 19.2
[2018-08-02 11:40] VITALS: BP 149/77
[2018-08-02 11:45] VITALS: Ht 180.3 cm; Wt 61.4 kg
[2018-08-02 15:05] VITALS: BP 133/66
[2018-08-02 20:33] VITALS: BP 135/89
[2018-08-03 00:04] VITALS: BP 140/61
[2018-08-03 06:29] LABS: BASOPHILS 0.2 % (0-2); EOSINOPHILS 0.6 % (0-7); HEMATOCRIT 33.1 % (42.0-54.0); HEMOGLOBIN 10.6 g/dL (13.5-17.5); LYMPHOCYTES 16.1 % (15-50); MCH 31.7 pg (26.0-34.0); MCV 99.1 fL (80.0-100.0); MEAN PLATELET VOLUME 9.4 fL (7.4-10.4); NEUTROPHILS 75.1 % (40-80); PLATELET COUNT 273 10x3/uL (130-400); RBC 3.34 10x6/uL (4.20-6.10); RDW 17.8 % (11.5-14.5); WBC 10.5 10x3/uL (4.8-10.8)
[2018-08-03 06:51] LABS: ANION GAP 14.6 mmol/L (8-16); CALCIUM 9.1 mg/dL (8.5-10.1); CARBON DIOXIDE 29.7 mmol/L (21.0-32.0); CREATININE - SERUM 1.2 mg/dL (0.6-1.3); MAGNESIUM - SERUM 1.7 mg/dL (1.8-2.4); PHOSPHOROUS 3.7 mg/dL (2.5-4.9); POTASSIUM - SERUM 4.3 mmol/L (3.5-5.1)
[2018-08-03 06:59] VITALS: BP 147/77
[2018-08-03 12:00] VITALS: BP 110/56
[2018-08-03 16:00] VITALS: BP 107/50
[2018-08-03 19:51] VITALS: BP 148/71
[2018-08-04] VITALS: BP 141/60
[2018-08-04 04:00] VITALS: BP 165/66
[2018-08-04 05:53] LABS: CALC OSMOLALITY 296 mosm/kg (275-300); CALCIUM 8.8 mg/dL (8.5-10.1); CARBON DIOXIDE 30.2 mmol/L (21.0-32.0); CHLORIDE - SERUM 106 mmol/L (98-107); GLUCOSE 80 mg/dL (74-106); SODIUM 146 mmol/L (136-145); eGFR NON AFRICAN AMERICAN 76 mL/min (90-120)
[2018-08-04 05:56] LABS: UREA NITROGEN 32 mg/dL (7-18)
[2018-08-04 07:36] VITALS: BP 160/61
[2018-08-04 07:43] LABS: BASOPHILS 0.2 % (0-2); EOSINOPHILS 0.6 % (0-7); HEMATOCRIT 33.9 % (42.0-54.0); HEMOGLOBIN 10.5 g/dL (13.5-17.5); IMMATURE GRANULOCYTES 3.1 % (0-5); LYMPHOCYTES 14.7 % (15-50); MCH 31.2 pg (26.0-34.0); MCV 100.6 fL (80.0-100.0); MEAN PLATELET VOLUME 9.2 fL (7.4-10.4); MONOCYTES 4.8 % (2-11); NEUTROPHILS 76.6 % (40-80); PLATELET COUNT 303 10x3/uL (130-400); RBC 3.37 10x6/uL (4.20-6.10); RDW 17.7 % (11.5-14.5); WBC 10.5 10x3/uL (4.8-10.8)
[2018-08-04 12:00] VITALS: BP 155/77
[2018-08-04 16:00] VITALS: BP 158/70
[2018-08-04 19:57] VITALS: BP 148/71
[2018-08-05] VITALS: BP 155/84
[2018-08-05 04:00] VITALS: BP 149/69
[2018-08-05 06:14] LABS: BASOPHILS 0.2 % (0-2); EOSINOPHILS 0.3 % (0-7); HEMATOCRIT 32.4 % (42.0-54.0); HEMOGLOBIN 10.1 g/dL (13.5-17.5); IMMATURE GRANULOCYTES 3.6 % (0-5); LYMPHOCYTES 13.3 % (15-50); MCH 31.2 pg (26.0-34.0); MCHC 31.2 g/dL (31.0-37.0); MEAN PLATELET VOLUME 9.3 fL (7.4-10.4); NEUTROPHILS 77.6 % (40-80); PLATELET COUNT 282 10x3/uL (130-400); RBC 3.24 10x6/uL (4.20-6.10); RDW 17.4 % (11.5-14.5); WBC 10.1 10x3/uL (4.8-10.8)
[2018-08-05 06:34] LABS: CALCIUM 8.5 mg/dL (8.5-10.1); CARBON DIOXIDE 29.3 mmol/L (21.0-32.0); CREATININE - SERUM 1.1 mg/dL (0.6-1.3); POTASSIUM - SERUM 4.3 mmol/L (3.5-5.1)
[2018-08-05 15:48] VITALS: BP 163/80
[2018-08-05 20:25] VITALS: BP 139/51
[2018-08-06 00:33] VITALS: BP 131/60
[2018-08-06 05:19] VITALS: BP 134/64
[2018-08-06 05:25] LABS: BASOPHILS 0.4 % (0-2); EOSINOPHILS 0.6 % (0-7); HEMATOCRIT 34.2 % (42.0-54.0); HEMOGLOBIN 10.8 g/dL (13.5-17.5); IMMATURE GRANULOCYTES 5.1 % (0-5); LYMPHOCYTES 14.1 % (15-50); MCH 31.2 pg (26.0-34.0); MCHC 31.6 g/dL (31.0-37.0); MCV 98.8 fL (80.0-100.0); MEAN PLATELET VOLUME 9.3 fL (7.4-10.4); NEUTROPHILS 74.8 % (40-80); PLATELET COUNT 299 10x3/uL (130-400); RBC 3.46 10x6/uL (4.20-6.10); RDW 17.6 % (11.5-14.5); WBC 9.5 10x3/uL (4.8-10.8)
[2018-08-06 05:47] LABS: CALC OSMOLALITY 288 mosm/kg (275-300); CALCIUM 8.3 mg/dL (8.5-10.1); CARBON DIOXIDE 24.1 mmol/L (21.0-32.0); CHLORIDE - SERUM 106 mmol/L (98-107); GLUCOSE 126 mg/dL (74-106); POTASSIUM - SERUM 4.4 mmol/L (3.5-5.1); SODIUM 142 mmol/L (136-145); UREA NITROGEN 23 mg/dL (7-18); eGFR NON AFRICAN AMERICAN 76 mL/min (90-120)
[2018-08-06 07:19] VITALS: BP 132/54
[2018-08-06 11:34] VITALS: BP 140/58
[2018-08-06 15:20] VITALS: BP 121/60
[2018-08-06 20:00] VITALS: BP 138/62; BP 171/89
[2018-08-07] VITALS (7 sets, daily range): BP systolic 132–164; BP diastolic 65–87
[2018-08-07 05:57] LABS: BASOPHILS 0.3 % (0-2); EOSINOPHILS 0.6 % (0-7); HEMATOCRIT 35.1 % (42.0-54.0); HEMOGLOBIN 11.2 g/dL (13.5-17.5); IMMATURE GRANULOCYTES 6.1 % (0-5); LYMPHOCYTES 15.8 % (15-50); MCH 31.8 pg (26.0-34.0); MCHC 31.9 g/dL (31.0-37.0); MCV 99.7 fL (80.0-100.0); MEAN PLATELET VOLUME 8.9 fL (7.4-10.4); MONOCYTES 4.8 % (2-11); NEUTROPHILS 72.4 % (40-80); PLATELET COUNT 324 10x3/uL (130-400); RBC 3.52 10x6/uL (4.20-6.10); RDW 17.4 % (11.5-14.5); WBC 10.6 10x3/uL (4.8-10.8)
[2018-08-07 06:00] LABS: ANION GAP 15.2 mmol/L (8-16); CALCIUM 8.8 mg/dL (8.5-10.1); CARBON DIOXIDE 26.8 mmol/L (21.0-32.0); CREATININE - SERUM 1.1 mg/dL (0.6-1.3)
[2018-08-08 04:00] VITALS: BP 155/80
[2018-08-08 08:09] VITALS: BP 168/74
[2018-08-08] MEDS ORDERED: LEVAQUIN750 MG PO (15:27)
[2018-08-08] MEDS ORDERED: IPRAT-ALBUT 0.5-3 ML UPD (15:28)
== END 2018-08-08 18:32 | DRG 177 ==
LOC: D.ER 19:35 → D.M3 22:52 → D.SDCHOLD 08-07 08:56 → D.M3 08-07 08:58
PROVIDERS: Family Medicine; Internal Medicine Nephrology
DX: J69.0 Pneumonitis due to inhalation of food and vomit (principal); E43 Unspecified severe protein-calorie malnutrition; G93.41 Metabolic encephalopathy; E87.1 Hypo-osmolality and hyponatremia; N17.9 Acute kidney failure, unspecified; Z68.1 Body mass index [BMI] 19.9 or less, adult; J15.212 Pneumonia due to Methicillin resistant Staphylococcus aureus; Y95 Nosocomial condition; J15.5 Pneumonia due to Escherichia coli; G20 Parkinson's disease; F02.80 Dementia in other diseases classified elsewhere, unspecified severity, without behavioral disturbance, psychotic disturbance, mood disturbance, and anxiety; L89.152 Pressure ulcer of sacral region, stage 2; I10 Essential (primary) hypertension; E78.5 Hyperlipidemia, unspecified; I48.91 Unspecified atrial fibrillation; Z86.73 Personal history of transient ischemic attack (TIA), and cerebral infarction without residual deficits; E11.65 Type 2 diabetes mellitus with hyperglycemia; K21.9 Gastro-esophageal reflux disease without esophagitis; Z87.891 Personal history of nicotine dependence; Z95.0 Presence of cardiac pacemaker; J43.9 Emphysema, unspecified

== ENCOUNTER 2018-08-26 09:57 | Inpatient (IN) | payer MEDICARE, OTHER ==
[~2018-08-26] VITALS: Ht 180.3 cm; Wt 62.0 kg
[2018-08-26] VITALS (47 sets, daily range): BP systolic 75–178; BP diastolic 33–108; BMI 19.1
--- NOTE | ~2018-08-26 | MORECARE ---
CASE MANAGEMENT DISCHARGE SUMMARY PATIENT: JAYLON VICTOR UNIT: [id number] ADM DATE: 08/26/18 AGE: 82 : 33 SEX: M ROOM/BED: D.T02 AUTHOR: JOSE ELIZABETH PHYSICIAN: REFERRING PHYSICIAN: CATHY BELL MD DATE OF SERVICE: 08/26/18 Discharge Plan Patient Name: JAYLON VICTOR [facility] [facility] 1935 Planned Disposition: Home Anticipated Discharge Date: 08/31/18 Discharge Date: Expected LOS: 5 Initial Reviewer: [email or web address] Initial Review Date: 08/26/2018 Generated: 08/26/18 1:36 pm DCPIA - Discharge Planning Initial Assessment Updated by [email or web address]: Sujey Padilla on 08/26/18 12:35 pm * Is the patient Alert and Oriented? No * How many steps to enter\exit or inside your home? None * PCP Dr. Castellano * Pharmacy [facility] * Preadmission Environment [facility] * Facility Name [facility] * ADLs Partial Dependent * Partial ADLs (Assistance needed) Ambulation Bathing Medication Management Toileting Transfers * List name and contact numbers for known caregivers / representatives who currently or will assist patient after discharge: Carolynn Mata - daughter - [phone] * Verbal permission to speak to the caregivers and representatives has been obtained from the patient. Yes * Community resources currently utilized None * Additional services required to return to the preadmission environment? Yes * Can the patient safely return to the preadmission environment? Yes * Has this patient been hospitalized within the prior 30 days at any hospital? Yes Patient Name: JAYLON VICTOR Page 25966 at 1237 All edits/amendments must be made on the electronic document DICTATION DATE: 08/26/18 1236 CHRONIC MANAGER: TYRESE 08/26/18 1236 RPT#: [id number] DC DATE: STATUS: ADM IN [facility] [address] [place] [address] END OF REPORT
--- NOTE | ~2018-08-26 | MORECARE ---
CASE MANAGEMENT DISCHARGE SUMMARY PATIENT: JAYLON VICTOR UNIT: [id number] ADM DATE: 08/26/18 AGE: 82 : 33 SEX: M ROOM/BED: D.2315 AUTHOR: CLARA,DOC PHYSICIAN: REFERRING PHYSICIAN: CATHY BELL MD DATE OF SERVICE: 08/27/18 Discharge Plan Patient Name: JAYLON VICTOR Facility: [facility]:[place] : 1935 Planned Disposition: Home Anticipated Discharge Date: 08/31/18 Discharge Date: 08/27/2018 Expected LOS: 5 Initial Reviewer: [email or web address] Initial Review Date: 08/26/2018 Generated: 08/27/18 7:50 pm DCP- Discharge Planning Updated by [email or web address]: Sujey Padilla on 08/26/18 11:[address] Patient Name: JAYLON VICTOR Admission Status: ER Accout number: [id number] Admission Date: 08-26-2018 : 1935 Admission Diagnosis: Attending: CATHY BELL Current LOS: 1 Anticipated DC Date: 08-31-2018 Planned Disposition: Home Primary Insurance: MEDICARE A & B Discharge Planning Comments: CM met with patient and his daughter, Carolynn. Patient in intubated and sedated at this time. Educated Carolynn on the CM process and initial discharge planning assessment. Carolynn gave consent to complete assessment. Prior to admission patient was at [facility]. She reports that if the patient gets stable and able to discharge that he will not be going back to [place] and she will take him home. CM assured her that case management would be here to assist her in what she decided and would make available arrangements for discharge. She verbalized understanding and stated she was unsure what all would be needed for dc at this time. CM will continue to follow and will assist as needed with dc plans/needs. See below for more information. Motor Polarizer: Sujey Padilla RN, [facility] DCPIA - Discharge Planning Initial Assessment Updated by [email or web address]: Sujey Padilla on 08/26/18 12:35 pm * Is the patient Alert and Oriented? No * How many steps to enter\exit or inside your home? None * PCP Dr. Castellano * Pharmacy [facility] * Preadmission Environment [facility] * Facility Name [facility] * ADLs Partial Dependent * Partial ADLs (Assistance needed) Ambulation Bathing Medication Management Toileting Transfers * List name and contact numbers for known caregivers / representatives who currently or will assist patient after discharge: Carolynn Mata - daughter - [phone] * Verbal permission to speak to the caregivers and representatives has been obtained from the patient. Yes * Community resources currently utilized None * Additional services required to return to the preadmission environment? Yes * Can the patient safely return to the preadmission environment? Yes * Has this patient been hospitalized within the prior 30 days at any hospital? Yes Last DP export: 08/26/18 11:45 a Patient Name: JAYLON VICTOR Page 49542 at 1850 All edits/amendments must be made on the electronic document DICTATION DATE: 08/27/181849 COMMUNITY LIAISON OFFICER: TYRESE 08/27/181849 RPT#: [id number] DC DATE:08/27/18 STATUS: DIS IN [facility] [address] [place] [address] END OF REPORT
--- NOTE | ~2018-08-26 | MORECARE ---
CASE MANAGEMENT DISCHARGE SUMMARY PATIENT: JAYLON VICTOR UNIT: [id number] ADM DATE: 08/26/18 AGE: 82 : 33 SEX: M ROOM/BED: D.2315 AUTHOR: CLARA,DOC PHYSICIAN: REFERRING PHYSICIAN: CATHY BELL MD DATE OF SERVICE: 08/26/18 Discharge Plan Patient Name: JAYLON VICTOR Facility: [facility]:[place] : 1935 Planned Disposition: Home Anticipated Discharge Date: 08/31/18 Discharge Date: Expected LOS: 5 Initial Reviewer: [email or web address] Initial Review Date: 08/26/2018 Generated: 08/26/18 1:45 pm DCP- Discharge Planning Updated by [email or web address]: Sujey Padilla on 08/26/18 11:[address] Patient Name: JAYLON VICTOR Admission Status: ER Accout number: [id number] Admission Date: 08-26-2018 : 1935 Admission Diagnosis: Attending: CATHY BELL Current LOS: 1 Anticipated DC Date: 08-31-2018 Planned Disposition: Home Primary Insurance: MEDICARE A & B Discharge Planning Comments: CM met with patient and his daughter, Carolynn. Patient in intubated and sedated at this time. Educated Carolynn on the CM process and initial discharge planning assessment. Carolynn gave consent to complete assessment. Prior to admission patient was at [facility]. She reports that if the patient gets stable and able to discharge that he will not be going back to [place] and she will take him home. CM assured her that case management would be here to assist her in what she decided and would make available arrangements for discharge. She verbalized understanding and stated she was unsure what all would be needed for dc at this time. CM will continue to follow and will assist as needed with dc plans/needs. See below for more information. Lining Feller: Sujey Pdailla RN, [facility] DCPIA - Discharge Planning Initial Assessment Updated by [email or web address]: Sujey Padilla on 08/26/18 12:35 pm * Is the patient Alert and Oriented? No * How many steps to enter\exit or inside your home? None * PCP Dr. Castellano * Pharmacy [facility] * Preadmission Environment [facility] * Facility Name [facility] * ADLs Partial Dependent * Partial ADLs (Assistance needed) Ambulation Bathing Medication Management Toileting Transfers * List name and contact numbers for known caregivers / representatives who currently or will assist patient after discharge: Carolynn Mata - caryl - [phone] * Verbal permission to speak to the caregivers and representatives has been obtained from the patient. Yes * Community resources currently utilized None * Additional services required to return to the preadmission environment? Yes * Can the patient safely return to the preadmission environment? Yes * Has this patient been hospitalized within the prior 30 days at any hospital? Yes Last DP export: 08/26/18 11:36 a Patient Name: JAYLON VICTOR Page [id number] at 1245 All edits/amendments must be made on the electronic document DICTATION DATE: 08/26/181244 AIR TRAFFIC CONTROL SPECIALIST: TYRESE 08/26/18 1245 RPT#: [id number] DC DATE: STATUS: ADM IN [facility] [address] [place] [address] END OF REPORT
[~2018-08-26 09:57] MED LIST changes: +IBUPROFEN200 MG PO; +LEVAQUIN750 MG PO; +MUCINEX600 MG PO; +OS-CAL500 MG PO; +SINEMET CR 50-1 EACH
[2018-08-26 10:28] LABS: BASOPHILS 0.2 % (0-2); EOSINOPHILS 0.2 % (0-7); HEMATOCRIT 37.7 % (42.0-54.0); HEMOGLOBIN 11.6 g/dL (13.5-17.5); IMMATURE GRANULOCYTES 0.4 % (0-5); LYMPHOCYTES 23.1 % (15-50); MCH 32.1 pg (26.0-34.0); MCHC 30.8 g/dL (31.0-37.0); MCV 104.4 fL (80.0-100.0); MEAN PLATELET VOLUME 9.9 fL (7.4-10.4); MONOCYTES 6.8 % (2-11); NEUTROPHILS 69.3 % (40-80); PLATELET COUNT 252 10x3/uL (130-400); RBC 3.61 10x6/uL (4.20-6.10); RDW 16.3 % (11.5-14.5)
[2018-08-26 10:37] LABS: APTT 21.8 SECONDS (22.8-39.4); INR 1.28 (0.85-1.17); PROTIME 15.6 SECONDS (11.6-15.0)
[2018-08-26 10:57] LABS: ALBUMIN 1.7 g/dL (3.4-5.0); ALKALINE PHOSPHATASE 46 U/L (46-116); ALT (SGPT) 8 U/L (10-68); BILIRUBIN - TOTAL 0.25 mg/dL (0.2-1.3); CARBON DIOXIDE 22.8 mmol/L (21.0-32.0); CKMB 1.7 U/L (0.0-3.6); CREATINE KINASE 64 UL (21-232); CREATININE - SERUM 1.2 mg/dL (0.6-1.3); POTASSIUM - SERUM 4.1 mmol/L (3.5-5.1); PROTEIN - SERUM 4.9 g/dL (6.4-8.2); SODIUM 155 mmol/L (136-145); UREA NITROGEN 41 mg/dL (7-18); eGFR NON AFRICAN AMERICAN 61 mL/min (90-120)
[2018-08-26 11:01] LABS: CALC OSMOLALITY 321 mosm/kg (275-300); GLUCOSE 184 mg/dL (74-106); TROPONIN-I < 0.017 ng/mL (0.000-0.060)
[2018-08-26 11:24] LABS: CHLORIDE - SERUM 118 mmol/L (98-107)
[2018-08-26 13:32] LABS: APPEARANCE HAZY (CLEAR); BACTERIA FEW /hpf (NONE SEEN); BILIRUBIN NEGATIVE (NEGATIVE); COLOR YELLOW (YELLOW); EPITHELIAL CELLS RARE /hpf (0-5); GLUCOSE NEGATIVE (NEGATIVE); KETONE NEGATIVE (NEGATIVE); NITRITE POSITIVE (NEGATIVE); PROTEIN 2+ mg/dL (NEGATIVE); RED CELLS - URINE 0-5 /hpf (0-5); UROBILINOGEN NORMAL (NORMAL); WHITE CELLS - URINE 0-5 /hpf (0-5)
[2018-08-27] VITALS (50 sets, daily range): BP systolic 56–118; BP diastolic 33–69; Ht 180.3 cm; Wt 62.0 kg
[2018-08-27 00:25] LABS: ALBUMIN 1.9 g/dL (3.4-5.0); BILIRUBIN - TOTAL 0.36 mg/dL (0.2-1.3); CARBON DIOXIDE 23.6 mmol/L (21.0-32.0); POTASSIUM - SERUM 4.6 mmol/L (3.5-5.1); PROTEIN - SERUM 5.5 g/dL (6.4-8.2)
[2018-08-27 00:35] LABS: CREATININE - SERUM 1.7 mg/dL (0.6-1.3)
[2018-08-27 05:32] LABS: BASOPHILS 0.1 % (0-2); EOSINOPHILS 0 % (0-7); HEMATOCRIT 34.5 % (42.0-54.0); HEMOGLOBIN 10.2 g/dL (13.5-17.5); IMMATURE GRANULOCYTES 2.1 % (0-5); LYMPHOCYTES 11.2 % (15-50); MCH 31.9 pg (26.0-34.0); MCHC 29.6 g/dL (31.0-37.0); MEAN PLATELET VOLUME 10.4 fL (7.4-10.4); MONOCYTES 4.1 % (2-11); NEUTROPHILS 82.5 % (40-80); PLATELET COUNT 224 10x3/uL (130-400); RDW 16.4 % (11.5-14.5)
[2018-08-27 05:45] LABS: MCV 107.8 fL (80.0-100.0); WBC 16.2 10x3/uL (4.8-10.8)
[2018-08-27 05:49] LABS: ALBUMIN 2.2 g/dL (3.4-5.0); ANION GAP 17.9 mmol/L (8-16); BILIRUBIN - TOTAL 0.47 mg/dL (0.2-1.3); CARBON DIOXIDE 23.5 mmol/L (21.0-32.0); CREATININE - SERUM 2.1 mg/dL (0.6-1.3); MAGNESIUM - SERUM 1.5 mg/dL (1.8-2.4); POTASSIUM - SERUM 4.4 mmol/L (3.5-5.1); PROTEIN - SERUM 5.5 g/dL (6.4-8.2)
== END 2018-08-27 11:59 | DRG 871 ==
LOC: D.ER 09:57 → D.EDHOLD 12:20 → D.ICU 12:20
PROVIDERS: Family Medicine; Internal Medicine Pulmonary Disease
PROC: 5A1935Z Respiratory Ventilation, Less than 24 Consecutive Hours (ICD-10-PCS; principal; 2018-08-26)
PROC: 05HY33Z Insertion of Infusion Device into Upper Vein, Percutaneous Approach (ICD-10-PCS; 2018-08-26)
DX: A41.9 Sepsis, unspecified organism (principal); J69.0 Pneumonitis due to inhalation of food and vomit; R65.21 Severe sepsis with septic shock; J96.01 Acute respiratory failure with hypoxia; J96.02 Acute respiratory failure with hypercapnia; R53.2 Functional quadriplegia; J44.1 Chronic obstructive pulmonary disease with (acute) exacerbation; J44.0 Chronic obstructive pulmonary disease with (acute) lower respiratory infection; E87.2 Acidosis; E87.0 Hyperosmolality and hypernatremia; N17.9 Acute kidney failure, unspecified; Z68.1 Body mass index [BMI] 19.9 or less, adult; I10 Essential (primary) hypertension; K21.9 Gastro-esophageal reflux disease without esophagitis; E78.5 Hyperlipidemia, unspecified; I48.91 Unspecified atrial fibrillation; G20 Parkinson's disease; F02.80 Dementia in other diseases classified elsewhere, unspecified severity, without behavioral disturbance, psychotic disturbance, mood disturbance, and anxiety; R13.10 Dysphagia, unspecified; Z66 Do not resuscitate; E11.9 Type 2 diabetes mellitus without complications; I25.10 Atherosclerotic heart disease of native coronary artery without angina pectoris; R53.81 Other malaise; L89.152 Pressure ulcer of sacral region, stage 2; D75.89 Other specified diseases of blood and blood-forming organs